=== PATIENT | male | born 1970 | race Caucasian/White ===

== ENCOUNTER 2016-07-31 11:24 | Inpatient (IN) | payer MEDICAID ==
[~2016-07-31] VITALS: Ht 175.3 cm; Wt 88.4 kg
[2016-07-31] VITALS (7 sets, daily range): BP systolic 102–139; BP diastolic 52–71; PULSE 64–72; RESP 16–20; TEMP 98.3; O2SAT 93–99
[~2016-07-31 11:24] MED LIST: BENZ1TAB PO; GABA100C4 PO; LURA1TAB2 PO; XANA2TAB2 PO
[2016-07-31] MEDS ORDERED: SODIUM CHLOR 0.9% 1000 ML INJ 1,000 ML IV SCH (11:45)
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
[2016-07-31 12:15] LABS: AUTOMATED NEUTROPHIL # 7.1 TH/MM3 (1.8-7.7); BASOPHIL % 0.2 % (0.0-2.0); EOSINOPHIL # 0.1 TH/MM3 (0-0.4); EOSINOPHIL % 0.6 % (0.0-4.0); HEMO FLAGS DIFF FINAL; LYMPHOCYTE # 2.5 TH/MM3 (1.0-4.8); MEAN CELL VOLUME 90.5 FL (80.0-100.0); MEAN CORPUSCULAR HEMOGLOBIN 30.9 PG (27.0-34.0); MEAN CORPUSCULAR HGB CONC 34.1 % (32.0-36.0); MONO % 4.7 % (0.0-8.0); NEUT % 69.5 % (16.0-70.0); PLATELET COUNT 205 TH/MM3 (150-450); RED BLOOD COUNT 5.09 MIL/MM3 (4.50-5.90); RED CELL DISTRIBUTION WIDTH 13.3 % (11.6-17.2); WHITE BLOOD COUNT 10.2 TH/MM3 (4.0-11.0)
[2016-07-31 12:18] LABS: BLOOD, URINE NEG (NEG); COMMENT (UR) CULT NOT INDICATED; GLUCOSE,URINE NEG (NEG); KETONE, URINE NEG (NEG); NITRITE,URINE NEG (NEG); URINE COLOR LIGHT-YELLOW (YELLW/STRAW)
[2016-07-31 12:19] LABS: CULTURE IF INDICATED CULT NOT INDICATED
--- NOTE | 2016-07-31 12:21 | RADRPT ---
EXAM DATE/TIME: 07/31/2016 11:42 [facility] COMPARISON: CHEST SINGLE AP, April 27, 2016, 22:10. INDICATIONS : Short of breath, seizure today, pain all over body MEDICAL HISTORY : Hepatitis C. Chronic obstructive pulmonary disease. seizures SURGICAL HISTORY : Appendectomy. ENCOUNTER: Initial ACUITY: 1 day PAIN SCORE: 5/10 LOCATION: Bilateral chest FINDINGS: A single view of the chest demonstrates the lungs to be symmetrically aerated without evidence of mas s, infiltrate or effusion. The cardiomediastinal contours are unremarkable. Osseous structures are intact. CONCLUSION: No acute disease. Ayad Noriega MD on July 31, 2016 at 12:18 Board Certified Radiologist. This report was verified electronically.
[2016-07-31 12:23] LABS: AMPHETAMINE, URINE NEG (NEG); BARBITURATES, URINE NEG (NEG); COCAINE, URINE NEG (NEG)
[2016-07-31 12:41] LABS: APTT (PATIENT) 26.1 SEC (24.3-30.1); PROTHROMBIN TIME - PATIENT 10.6 SEC (9.8-11.6)
[2016-07-31 12:59] LABS: ALT (GPT) 18 U/L (12-78); ANION GAP 6 MEQ/L (5-15); AST (GOT) 32 U/L (15-37); BICARBONATE 23.4 MEQ/L (21.0-32.0); BLOOD UREA NITROGEN 10 MG/DL (7-18); CHLORIDE 111 MEQ/L (98-107); GLOMERULAR FILTRATION RATE 100 ML/MIN (>89); SODIUM (NA) 140 MEQ/L (136-145)
[2016-07-31 13:00] LABS: ALKALINE PHOSPHATASE 58 U/L (45-117); TOTAL BILIRUBIN ADULT 0.4 MG/DL (0.2-1.0)
[2016-07-31] MEDS ORDERED: FOSPHENYTOIN INJ 1,000 MGPE in SODIUM CHLORIDE 0.9% INJ 50 ML IV ONE (13:15)
[2016-07-31] MEDS ORDERED: MAGNESIUM HYDROXIDE SUSP 30 ML CUP PO PRN (13:30)
[2016-07-31] MEDS ORDERED: ACETAMINOPHEN 325 MG TAB PO PRN (13:30)
[2016-07-31] MEDS ORDERED: LORazepam 2 MG/ML VIAL IV PUSH PRN (13:30)
[2016-07-31] MEDS ORDERED: ONDANSETRON HCL 4 MG/2 ML VIAL IVP PRN (13:30)
[2016-07-31] MEDS ORDERED: SODIUM CHLORIDE 0.9% FLUSH 5 ML FLUSH FLUSH PRN (13:30)
[2016-07-31] MEDS ORDERED: BISACODYL 10 MG SUPP PR PRN (13:30)
[2016-07-31] MEDS ORDERED: NALOXONE HCL 0.4 MG/ML AMP IV PRN (13:30)
[2016-07-31] MEDS ORDERED: LORazepam 2 MG/ML VIAL IV PUSH ONE (14:00)
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
[2016-07-31] MEDS: ENOXAPARIN SODIUM 40 MG/0.4 ML SYRINGE SQ SCH (14:54)
[2016-07-31] MEDS: SODIUM CHLOR 0.9% 1000 ML INJ 1,000 ML IV SCH (15:03)
--- NOTE | 2016-07-31 15:20 | MG ---
cc: ORAL SUBRAMANIAN M.D. Lab No:[id number] Date: 07/31/2016 Age: Sex: M Race: TECHNIQUE 17 channel EEG. DESCRIPTION The background rhythm reveals a symmetrical alpha rhythm frequency 8-10 Hz amplitude is about 20 microvolts. There is some eye movement artifact and muscle artifact present. There are no lateralizing features seen. There are no epileptiform discharges. Hyperventilation was done with no change in the background rhythm. Photic stimulation was done and a stepwise fashion with a normal driving response. INTERPRETATION Normal EEG. MD LAWRENCE Omer/theodora /2:49 PM /3:18 PM
[2016-07-31] MEDS: LORazepam 1 MG TAB PO PRN (19:40)
--- NOTE | 2016-07-31 19:46 | RADRPT ---
EXAM DATE/TIME: 07/31/2016 19:05 [facility] COMPARISON: No previous studies available for comparison. INDICATIONS : Seizures. MEDICAL HISTORY : Hypertension. HIV. Hepatitis C. SURGICAL HISTORY : Appendectomy. Achilles tendon repair. ENCOUNTER: Subsequent ACUITY: 1 day PAIN SCORE: 0/10 LOCATION: head. TECHNIQUE: Multiplanar, multisequence MRI of the brain was performed without contrast. FINDINGS: CEREBRUM: The ventricles are normal for age. No evidence of midline shift, mass lesion, hemorrhage or acute in farction. No extraaxial fluid collections are seen. The pituitary gland and suprasellar cistern are normal in configuration. WHITE MATTER: No significant signal abnormalities are seen in the white matter. POSTERIOR FOSSA: The cerebellum and brainstem are intact. The 4th ventricle is midline. The cerebellopontine angle is unremarkable. The cerebellar tonsils are normal in position. DIFFUSION IMAGING: No focal areas of restricted diffusion are seen. No evidence of acute infarction. EXTRACRANIAL: The visualized portions of the orbits and paranasal sinuses are unremarkable. CONCLUSION: No acute disease. Clarence Juarez MD on July 31, 2016 at 19:44 Board Certified Radiologist. This report was verified electronically.
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
[2016-07-31] MEDS ORDERED: PHENYTOIN SODIUM 100 MG CAP PO ONE (21:30)
[2016-07-31] MEDS: levETIRAcetam 500 MG TAB PO SCH (21:31)
[2016-07-31] MEDS: SODIUM CHLORIDE 0.9% FLUSH 5 ML FLUSH FLUSH SCH (22:42)
[2016-08-01] VITALS: BP 108/45; PULSE 67; RESP 20; TEMP 98.4; O2SAT 98
[2016-08-01] MEDS: LORazepam 1 MG TAB PO PRN ×2 (02:56→11:23)
[2016-08-01 04:57] VITALS: BP 93/53; PULSE 66; RESP 20; TEMP 97.4; O2SAT 96
[2016-08-01] MEDS: PHENYTOIN SODIUM 100 MG CAP PO SCH ×2 (06:10→14:00)
[2016-08-01] MEDS: SODIUM CHLOR 0.9% 1000 ML INJ 1,000 ML IV SCH ×2 (06:12→09:21)
[2016-08-01 08:22] LABS: AUTOMATED NEUTROPHIL # 7.6 TH/MM3 (1.8-7.7); BASOPHIL # 0.1 TH/MM3 (0-0.2); BASOPHIL % 0.6 % (0.0-2.0); EOSINOPHIL # 0.1 TH/MM3 (0-0.4); EOSINOPHIL % 1.3 % (0.0-4.0); HEMO FLAGS DIFF FINAL; LYMPH % 22.1 % (9.0-44.0); LYMPHOCYTE # 2.4 TH/MM3 (1.0-4.8); MEAN CORPUSCULAR HEMOGLOBIN 30.2 PG (27.0-34.0); MEAN CORPUSCULAR HGB CONC 33.2 % (32.0-36.0); MONO % 6.9 % (0.0-8.0); NEUT % 69.1 % (16.0-70.0); PLATELET COUNT 195 TH/MM3 (150-450); RED BLOOD COUNT 5.05 MIL/MM3 (4.50-5.90); RED CELL DISTRIBUTION WIDTH 12.9 % (11.6-17.2)
[2016-08-01] MEDS: levETIRAcetam 500 MG TAB PO SCH (08:34)
[2016-08-01] MEDS: SODIUM CHLORIDE 0.9% FLUSH 5 ML FLUSH FLUSH SCH (08:34)
[2016-08-01 09:04] LABS: BICARBONATE 24.4 MEQ/L (21.0-32.0); POTASSIUM 3.9 MEQ/L (3.5-5.1)
[2016-08-01 09:17] VITALS: BP 108/52; PULSE 64; RESP 16; TEMP 97.5; O2SAT 94
[2016-08-01] MEDS ORDERED: INFLUENZA VIRUS VACCINE (QUADRIVALENT) 0.5 ML SYR IM ONE (10:00)
[2016-08-01] MEDS ORDERED: PNEUMOCOCCAL POLYVALENT INJ 25 MCG/0.5 ML SYR IM ONE (10:00)
[2016-08-01 13:21] VITALS: BP 121/60; PULSE 60; RESP 16; TEMP 97.3; O2SAT 97
[2016-08-01] MEDS: ENOXAPARIN SODIUM 40 MG/0.4 ML SYRINGE SQ SCH (14:00)
--- NOTE | 2016-08-01 14:04 | HHI.PR ---
Subjective Remarks Follow-up for seizures. The patient states that he didn't sleep that well last night. However he feels well this time. He would like to go home. He likes the idea of changing from Dilantin because it's hard for him to get levels checked. He is agreeable for Ativan taper at this time to get off of benzos. Objective Vitals Vital Signs Date Time Temp Pulse Resp B/P Pulse Ox O2 Delivery O2 Flow Rate FiO2 08/01/16 13:21 97.3 60 16 121/60 97 08/01/16 09:17 97.5 64 16 108/52 94 08/01/16 04:57 97.4 66 20 93/53 96 08/01/16 00:00 98.4 67 20 108/45 98 07/31/16 21:57 98.3 65 20 106/57 93 07/31/16 19:31 72 20 112/61 97 07/31/16 16:43 Room Air 07/31/16 16:43 64 16 106/58 97 Room Air 07/31/16 15:37 71 16 102/52 97 Room Air 07/31/16 14:03 65 16 125/66 97 Room Air I/O 07/31/16 07/31/16 07/31/16 08/01/16 08/01/16 08/01/16 07:00 15:00 23:00 07:00 15:00 23:00 Output Total 200 ml 800 ml Balance -200 ml -800 ml Output Urine Total 200 ml 800 ml Result Diagram: 08/01/16 0736 08/01/16 0736 Imaging Last Impressions Chest X-Ray 07/31/16 1137 Signed Impressions: Service Date/Time: Sunday, July 31, 2016 11:42 - CONCLUSION: No acute disease. Ayad Noriega MD Brain MRI 07/31/16 0000 Signed Impressions: Service Date/Time: Sunday, July 31, 2016 19:05 - CONCLUSION: No acute disease. Clarence Juarez MD Objective Remarks GENERAL: Well-developed well-nourished. In no acute distress. SKIN: Warm and dry. No lesions noted. HEENT: Normocephalic. Pupils equal and round. Mucous membranes pink and moist. CARDIOVASCULAR: Regular rate and rhythm. No murmur appreciated. RESPIRATORY: No accessory muscle use. Clear to auscultation. Breath sounds equal bilaterally. GASTROINTESTINAL: Abdomen soft, non-tender, nondistended. Bowel sounds x4. MUSCULOSKELETAL: No obvious deformities. No clubbing or cyanosis. No edema. NEUROLOGICAL: Awake and alert. No focal neurological deficits. Moves upper and lower extremities spontaneously. Normal speech. PSYCHIATRIC: Appropriate mood and affect; insight and judgment normal. A/P Assessment and Plan 46-year-old male with past medical history of anxiety and seizure disorder who presented with seizures Seizure disorder: Seizures improved with IV Ativan in the ED. Questionable compliance with Dilantin, level subtherapeutic. Also possible benzo withdrawal could be contributing, see below. Started on Keppra. Neurology consulted, appreciate input, recommended Dilantin but will discuss and consider switching to Keppra due to compliance. Seizure precautions. Anxiety: Was on Xanax, possible withdrawal. Benzodiazepines negative in UDS. Patient would like to taper off, prescription written for Ativan taper. PCP follow-up. Written by Chace Romero, acting as scribe for Dr. Delvalle on 08/01/16 at 14:03. The documentation accurately reflects the work performed [id number] by me on at 14:03. Discharge Planning Follow-up with neurology recommendations regarding antiepileptic therapy as outpatient. Likely discharge later today on AED, Ativan taper, and on seizure precautions. Addendum: Dr. Delvalle spoke with Dr. Haynes, who agreed with changing Dilantin to Keppra at discharge. Discharge home. Chace Romero Aug 01, 2016 14:04 Winnie Delvalle DO Aug 01, 2016 20:50
[2016-08-01] MEDS ORDERED: LEVE500 PO (14:26)
--- NOTE | 2016-08-01 23:07 | EKG ---
Date Performed: 07/31/2016 Time Performed: 14:10:33 PTAGE: 46 years EKG: Sinus rhythm NORMAL ECG PREVIOUS TRACING : 04/28/2016 04.16 DOCTOR: Filemon Bonds Interpretating Date/Time 08/01/2016 23:00:22
== END 2016-08-01 14:42 | disposition home or self-care (01) | DRG 101 ==
LOC: NEPC 11:24 → NEDA 13:26 → NEDH 19:45 → N05B 21:29
PROVIDERS: ADMIT Hospitalist; ATTEND Hospitalist
DX: G40.909 Epilepsy, unspecified, not intractable, without status epilepticus (principal); K51.90 Ulcerative colitis, unspecified, without complications; I10 Essential (primary) hypertension; F13.239 Sedative, hypnotic or anxiolytic dependence with withdrawal, unspecified; I25.2 Old myocardial infarction; F17.210 Nicotine dependence, cigarettes, uncomplicated; F20.9 Schizophrenia, unspecified; F31.9 Bipolar disorder, unspecified; F41.9 Anxiety disorder, unspecified; Z87.442 Personal history of urinary calculi
CPT/HCPCS: 70551; 71010; 80048; 80053; 80164; 80185; 80307; 80320; 81001; 82550; 85025; 85610; 85730; 90686; 90732; 93005; 95819; 96360; J1650; J2060; J7030; Q2009; Q2038

== ENCOUNTER 2016-09-02 08:09 | Emergency (ER) | payer MEDICAID ==
[~2016-09-02] VITALS: Ht 175.3 cm; Wt 84.8 kg
[~2016-09-02 08:09] MED LIST changes: -BENZ1TAB PO; -GABA100C4 PO; +LEVE500 PO; -XANA2TAB2 PO
[2016-09-02 08:24] VITALS: BP 157/86; PULSE 89; RESP 16; TEMP 98.3; O2SAT 98
[2016-09-02] MEDS ORDERED: AMLO10TA2 PO (08:33)
[2016-09-02] MEDS ORDERED: XANA1TAB2 PO (08:33)
[2016-09-02] MEDS ORDERED: ONDANSETRON ODT 4 MG TAB PO ONE (09:45)
[2016-09-02] MEDS ORDERED: KETOROLAC TROMETHAMINE 60 MG/2 ML (IM) VIAL IM ONE (09:45)
[2016-09-02] MEDS ORDERED: ZOVI400T PO (09:49)
[2016-09-02] MEDS ORDERED: NORC5TAB PO (09:49)
--- NOTE | 2016-09-02 09:49 | PD ---
HPI Chief Complaint: Complaint Time Seen by Provider: 09:27 Travel History International Travel<30 days: No Contact w/Intl Traveler<30days: No Traveled to known affect area: No History of Present Illness HPI 46 years old male complains of painful rash on the penis. Patient has history of genital herpes. Patient states that he started having painful rash with blisters and clear fluid oozing from the rash yesterday. Patient denies any chest pain or shortness of breath. Patient denies abdominal pain. Patient denies any dysuria or frequency. Patient denies any fever chills. On a scale of 1-10 the pain is a 10. PFSH Past Medical History Asthma: No Blood Disorders: No Bipolar Disorder: Yes Anxiety: Yes Depression: Yes Heart Rhythm Problems: No Cancer: No Cardiac Catheterization: No Cardiovascular Problems: Yes (htn on meds) High Cholesterol: No Chemotherapy: No Congestive Heart Failure: No COPD: No Cerebrovascular Accident: No Diabetes: No Diminished Hearing: No Endocrine: No Gastrointestinal Disorders: Yes (COLITIS ) Genitourinary: No Headaches: Yes Hepatitis: Yes (C) Hypertension: Yes Immune Disorder: No Kidney Stones: Yes Musculoskeletal: No Neurologic: Yes Psychiatric: Yes Reproductive: No Respiratory: No Integumentary: Yes (hx of herpies) Immunizations Current: Yes Migraines: No Myocardial Infarction: Yes (PT STATES WHEN HE WAS 18 BUT 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 TO VIDEO SPECIALIST AND SENT HOME) Radiation Therapy: No Schizophrenia: Yes Seizures: Yes Tetanus Vaccination: < 5 Years Influenza Vaccination: Yes Past Surgical History Abdominal Surgery: Yes (APPENDECTOMY) AICD: No Appendectomy: Yes (1994) Arteriovenous Shunt: No Cardiac Surgery: No Coronary Artery Bypass Graft: No Ear Surgery: No Endocrine Surgery: No Eye Surgery: No Genitourinary Surgery: No Gynecologic Surgery: No Insulin Pump: No Joint Replacement: No Neurologic Surgery: Yes (HEAD SURGERY / SKULL FRACTURE) Oral Surgery: No Pacemaker: No Thoracic Surgery: No Other Surgery: Yes (ACHILLES TENDON RECONSTRUCTION SX right foot) Family History Family Myocardial Infarction: Yes (FATHER, BROTHER) Social History 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 ) Tobacco Use: Yes (1/2 -1 PPD) Substance Use: No (denies) Allergies-Medications (Allergen,Severity, Reaction): Coded Allergies: Codeine (Verified Allergy, Severe, HIVES, 09/02/16) Reported Meds & Prescriptions Reported Meds & Active Scripts Active Keppra (Levetiracetam) 500 Mg Tab 500 Mg PO Q12HR Reported Xanax (Alprazolam) 1 Mg Tab 1 Mg PO BID PRN Amlodipine (Amlodipine Besylate) 10 Mg Tab 10 Mg PO HS Latuda (Lurasidone) 60 Mg Tab 60 Mg PO HS Review of Systems General / Constitutional: No: Fever Eyes: No: Visual changes HENT: No: Headaches Cardiovascular: No: Chest Pain or Discomfort Respiratory: No: Shortness of Breath Gastrointestinal: No: Abdominal Pain Genitourinary: No: Dysuria Musculoskeletal: No: Pain Skin: No Rash Neurologic: No: Weakness Psychiatric: No: Depression Endocrine: No: Polydipsia Hematologic/Lymphatic: No: Easy Bruising Physical Exam Narrative GENERAL: Well-nourished, well-developed patient. SKIN: Warm and dry. HEAD: Normocephalic. EYES: No scleral icterus. No injection or drainage. NECK: Supple, trachea midline. No JVD or lymphadenopathy. CARDIOVASCULAR: Regular rate and rhythm without murmurs, gallops, or rubs. RESPIRATORY: Breath sounds equal bilaterally. No accessory muscle use. GASTROINTESTINAL: Abdomen soft, non-tender, nondistended. MUSCULOSKELETAL: No cyanosis, or edema. BACK: Nontender without obvious deformity. No CVA tenderness. exam: Patient has blistering rash on the gland penis and distal shaft of the penis. No redness no heat. No penile discharge noted. No lymphadenopathy. Data Data Last Documented VS Vital Signs Date Time Temp Pulse Resp B/P Pulse Ox O2 Delivery O2 Flow Rate FiO2 09/02/16 08:33 86 16 09/02/16 08:24 98.3 157/86 98 Orders Ketorolac Inj (Toradol Inj) (09/02/16 09:45) Ondansetron Odt (Zofran Odt) (09/02/16 09:45) MDM Medical Decision Making Medical Screen Exam Complete: Yes Emergency Medical Condition: Yes Differential Diagnosis Differential diagnosis including genital herpes, syphilis, chancre, chancroid, cellulitis, urethritis. Narrative Course 46 years old male with painful rash on the penis. History of genital herpes. Toradol 60 mg IM. Zofran 4 mg ODT. Diagnosis Primary Impression: Genital herpes Qualified Code: A60.01 - Herpes simplex infection of penis Patient Instructions: General Instructions Additional Instructions: Take medications as directed. Follow-up with personal physician and urologist. Return if worse. Med/Other Pt SpecificInfo: Prescription(s) given Scripts Hydrocodone-Acetaminophen ([place])5-325 mg Tab1 Tab PO Q6H PRN (PAIN) #30 TAB Ref 0 Prov:Vinicio Azul MD 09/02/16 Acyclovir (Zovirax)400 Mg [id number] Mg PO TID #21 TAB Ref 0 Prov:Vinicio Azul MD 09/02/16 Disposition: 01 DISCHARGE HOME Condition: Stable Vinicio Azul MD Sep 02, 2016 09:49
== END 2016-09-02 10:00 | disposition home or self-care (01) ==
LOC: PHED 08:09
DX: A60.01 Herpesviral infection of penis (principal); I10 Essential (primary) hypertension; F17.200 Nicotine dependence, unspecified, uncomplicated; Z87.2 Personal history of diseases of the skin and subcutaneous tissue; Z86.79 Personal history of other diseases of the circulatory system; Z87.19 Personal history of other diseases of the digestive system; Z86.69 Personal history of other diseases of the nervous system and sense organs; Z86.59 Personal history of other mental and behavioral disorders
CPT/HCPCS: 96372; 99282; J1885

== ENCOUNTER 2016-12-11 11:12 | Emergency (ER) | payer MEDICAID ==
[~2016-12-11] VITALS: Ht 175.3 cm; Wt 81.0 kg
[~2016-12-11 11:12] MED LIST changes: +AMLO10TA2 PO; +NORC5TAB PO; +XANA1TAB2 PO; +ZOVI400T PO
[2016-12-11 11:15] VITALS: BP 138/95; PULSE 80; RESP 16; TEMP 98.3; O2SAT 100
[2016-12-11] MEDS ORDERED: oxyCODONE/ACETAMINOPHEN 5 MG/325 MG TAB PO ONE (11:45)
[2016-12-11] MEDS ORDERED: ONDANSETRON HCL 4 MG/2 ML VIAL IV PUSH ONE (11:45)
[2016-12-11] MEDS ORDERED: SODIUM CHLOR 0.9% 1000 ML INJ 1,000 ML IV ONE (11:45)
[2016-12-11 12:10] LABS: AUTOMATED NEUTROPHIL # 5.3 TH/MM3 (1.8-7.7); BASOPHIL # 0.4 TH/MM3 (0-0.2); BASOPHIL % 4.6 % (0.0-2.0); EOSINOPHIL # 0.1 TH/MM3 (0-0.4); EOSINOPHIL % 1.3 % (0.0-4.0); HEMATOCRIT 45.2 % (39.0-51.0); HEMO FLAGS DIFF FINAL; LYMPHOCYTE # 2.2 TH/MM3 (1.0-4.8); MEAN CELL VOLUME 90.8 FL (80.0-100.0); MEAN CORPUSCULAR HEMOGLOBIN 30.4 PG (27.0-34.0); MEAN CORPUSCULAR HGB CONC 33.5 % (32.0-36.0); MONO % 6.5 % (0.0-8.0); NEUT % 61.6 % (16.0-70.0); PLATELET COUNT 186 TH/MM3 (150-450); RED BLOOD COUNT 4.98 MIL/MM3 (4.50-5.90); RED CELL DISTRIBUTION WIDTH 12.5 % (11.6-17.2); WHITE BLOOD COUNT 8.6 TH/MM3 (4.0-11.0)
--- NOTE | 2016-12-11 12:11 | PD ---
HPI Chief Complaint: Pain: Acute or Chronic Time Seen by Provider: 11:35 Travel History International Travel<30 days: No Contact w/Intl Traveler<30days: No Traveled to known affect area: No History of Present Illness HPI Patient is a 46 year old male who comes in complaining of lower abdominal pain as well as Herpes pain. He says he noticed he started having an outbreak yesterday and the pain has been getting worse. He does not have any medication for it at home. He says it started as a blister on his penis and then it burst and had some leakage of fluid. He also reports some lower abdominal pain with nausea, no vomiting, which is not typical of Herpes pain for him. He denies any fever or chills. He reports some dysuria. He is sexually active with is only. PFSH Past Medical History Asthma: No Blood Disorders: No Bipolar Disorder: Yes Anxiety: Yes Depression: Yes Heart Rhythm Problems: No Cancer: No Cardiac Catheterization: No Cardiovascular Problems: Yes (htn on meds) High Cholesterol: No Chemotherapy: No Congestive Heart Failure: No COPD: No Cerebrovascular Accident: No Diabetes: No Diminished Hearing: No Endocrine: No Gastrointestinal Disorders: Yes (COLITIS ) Genitourinary: No Headaches: Yes Hepatitis: Yes (C) Hypertension: Yes Immune Disorder: No Kidney Stones: Yes Musculoskeletal: No Neurologic: Yes Psychiatric: Yes Reproductive: No Respiratory: No Integumentary: Yes (hx of herpies) Immunizations Current: Yes Migraines: No Myocardial Infarction: Yes (PT STATES WHEN HE WAS 18 BUT 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 TO ARMED SECURITY OFFICER AND SENT HOME) Radiation Therapy: No Schizophrenia: Yes Seizures: Yes Tetanus Vaccination: < 5 Years Influenza Vaccination: Yes Past Surgical History Abdominal Surgery: Yes (APPENDECTOMY) AICD: No Appendectomy: Yes (1994) Arteriovenous Shunt: No Cardiac Surgery: No Coronary Artery Bypass Graft: No Ear Surgery: No Endocrine Surgery: No Eye Surgery: No Genitourinary Surgery: No Gynecologic Surgery: No Insulin Pump: No Joint Replacement: No Neurologic Surgery: Yes (HEAD SURGERY / SKULL FRACTURE) Oral Surgery: No Pacemaker: No Thoracic Surgery: No Other Surgery: Yes (ACHILLES TENDON RECONSTRUCTION SX right foot) Family History Family Myocardial Infarction: Yes (FATHER, BROTHER) Social History 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 ) Tobacco Use: Yes (2 -1 PPD) Substance Use: No (denies) Allergies-Medications (Allergen,Severity, Reaction): Coded Allergies: Codeine (Verified Allergy, Severe, HIVES, 12/11/16) Reported Meds & Prescriptions Reported Meds & Active Scripts Active Keppra (Levetiracetam) 500 Mg Tab 500 Mg PO Q12HR Reported Xanax (Alprazolam) 1 Mg Tab 1 Mg PO BID PRN Amlodipine (Amlodipine Besylate) 10 Mg Tab 10 Mg PO HS Latuda (Lurasidone) 60 Mg Tab 60 Mg PO HS Review of Systems Except as stated in HPI: all other systems reviewed are Neg General / Constitutional: No: Fever, Chills HENT: No: Headaches, Lightheadedness Cardiovascular: No: Chest Pain or Discomfort Respiratory: No: Shortness of Breath Gastrointestinal: Positive: Nausea, Abdominal Pain, No: Vomiting Genitourinary: Positive: Dysuria, Discharge Skin: Positive Lesions, No Rash, No Change in Pigmentation Neurologic: No: Weakness, Dizziness Physical Exam Narrative GENERAL: Awake and alert, in no acute distress. SKIN: Focused skin assessment warm/dry. HEAD: Atraumatic. Normocephalic. EYES: Pupils equal and round. No scleral icterus. ENT: Mucous membranes pink and moist. NECK: Trachea midline. No JVD. CARDIOVASCULAR: Regular rate and rhythm. No murmur appreciated. RESPIRATORY: No accessory muscle use. Clear to auscultation. Breath sounds equal bilaterally. GASTROINTESTINAL: Abdomen soft, nondistended. Tender to palpation of LLQ and suprapubic area. No rebound or guarding. : Exam performed in the presence of nurse Kimbrough. There is a small ulceration just below the glans, on the right side. No discharge from the urethra. No testicular lesions or masses. MUSCULOSKELETAL: No obvious deformities. No clubbing. No cyanosis. No edema. NEUROLOGICAL: Awake and alert. No obvious cranial nerve deficits. Motor grossly within normal limits. Normal speech. PSYCHIATRIC: Appropriate mood and affect; insight and judgment normal. Data Data Last Documented VS Vital Signs Date Time Temp Pulse Resp B/P Pulse Ox O2 Delivery O2 Flow Rate FiO2 12/11/16 11:15 98.3 80 16 138/95 100 Orders Complete Blood Count With Diff (12/11/16 11:40) Comprehensive Metabolic Panel (12/11/16 11:40) Urinalysis - C+S If Indicated (12/11/16 11:40) Gc And Chlamydia Pcr (12/11/16 11:40) Iv Access Insert/Monitor (12/11/16 11:40) Sodium Chlor 0.9% 1000 Ml Inj (Ns 1000 M (12/11/16 11:45) Ondansetron Inj (Zofran Inj) (12/11/16 11:45) Oxycodone-Acetamin 5-325 Mg (Percocet (12/11/16 11:45) Ct Abd/Pel W Iv Contrast(Rout) (12/11/16 ) Iohexol 350 Inj (Omnipaque 350 Inj) (12/11/16 13:01) Labs Laboratory Tests Test 12/11/16 12:00 White Blood Count 8.6 TH/MM3 Red Blood Count 4.98 MIL/MM3 Hemoglobin 15.1 GM/DL Hematocrit 45.2 % Mean Corpuscular Volume 90.8 FL Mean Corpuscular Hemoglobin 30.4 PG Mean Corpuscular Hemoglobin 33.5 % Concent Red Cell Distribution Width 12.5 % Platelet Count 186 TH/MM3 Mean Platelet Volume 7.9 FL Neutrophils (%) (Auto) 61.6 % Lymphocytes (%) (Auto) 26.0 % Monocytes (%) (Auto) 6.5 % Eosinophils (%) (Auto) 1.3 % Basophils (%) (Auto) 4.6 % Neutrophils # (Auto) 5.3 TH/MM3 Lymphocytes # (Auto) 2.2 TH/MM3 Monocytes # (Auto) 0.6 TH/MM3 Eosinophils # (Auto) 0.1 TH/MM3 Basophils # (Auto) 0.4 TH/MM3 CBC Comment DIFF FINAL Differential Comment Urine Collection Type CLEAN CATCH Urine Color YELLOW Urine Turbidity CLEAR Urine pH 8.0 Urine Specific Jewell 1.018 Urine Protein NEG mg/dL Urine Glucose (UA) 250 mg/dL Urine Ketones NEG mg/dL Urine Occult Blood NEG Urine Nitrite NEG Urine Bilirubin NEG Urine Leukocyte Esterase NEG Urine WBC 0-2 /hpf Urine Squamous Epithelial 0-5 /hpf Cells Urine Amorphous Sediment FEW Microscopic Urinalysis Comment CULT NOT INDICATED Urine Collection Time 1200 Sodium Level 144 MEQ/L Potassium Level 3.8 MEQ/L Chloride Level 111 MEQ/L Carbon Dioxide Level 31.0 MEQ/L Anion Gap 2 MEQ/L Blood Urea Nitrogen 14 MG/DL Creatinine 0.79 MG/DL Estimat Glomerular Filtration 106 ML/MIN Rate Random Glucose 101 MG/DL Calcium Level 8.5 MG/DL Total Bilirubin 0.4 MG/DL Aspartate Amino Transf 11 U/L (AST/SGOT) Alanine Aminotransferase 34 U/L (ALT/SGPT) Alkaline Phosphatase 61 U/L Total Protein 7.1 GM/DL Albumin 3.6 GM/DL MDM Medical Decision Making Medical Screen Exam Complete: Yes Emergency Medical Condition: Yes Medical Record Reviewed: Yes Differential Diagnosis Diverticulitis vs colitis vs herpes outbreak vs GC/Chlamydia vs UTI Narrative Course Patient is a 46-year-old male who comes in complaining of a herpes outbreak and lower abdominal pain. Exam shows a herpetic lesion the shaft of his penis, some left lower quadrant abdominal pain. IV established, labs sent. Labs show no acute abnormalities. CT abdomen and pelvis performed shows diverticulosis, no signs of diverticulitis. Patient given pain medicine. Will be discharged with pain medicine as well as a prescription for acyclovir. He is advised follow-up with his primary care doctor. Advised to follow-up with gastroenterology as needed. Advised to return to the ED as needed for any worsening symptoms. Diagnosis Primary Impression: Genital herpes Qualified Code: A60.01 - Herpes simplex infection of penis Patient Instructions: General Instructions, Genital Herpes Simplex (ED) Additional Instructions: Follow up with your doctor. Take pain medicine as needed. Return to the ED as needed for any worsening symptoms. Scripts Hydrocodone-Acetaminophen ([place])5-325 mg Tab1 Tab PO Q6H PRN (PAIN) #12 TAB Ref 0 Prov:Sanam Tang MD 12/11/16 Acyclovir 400 Mg [id number] Mg PO TID 7 Days Ref 0 Prov:Sanam Tang MD 12/11/16 Disposition: DISCHARGE HOME Condition: Stable Sanam Tang MD Dec 11, 2016 12:11
[2016-12-11 12:13] LABS: BLOOD, URINE NEG (NEG); GLUCOSE,URINE 250 mg/dL (NEG); KETONE, URINE NEG (NEG); NITRITE,URINE NEG (NEG)
[2016-12-11 12:14] LABS: METHOD OF COLLECTION CLEAN CATCH; URINE COLOR YELLOW (YELLW/STRAW)
[2016-12-11 12:17] LABS: CHLORIDE 111 MEQ/L (98-107); POTASSIUM 3.8 MEQ/L (3.5-5.1); SODIUM (NA) 144 MEQ/L (136-145)
[2016-12-11 12:21] LABS: ANION GAP 2 MEQ/L (5-15); BLOOD UREA NITROGEN 14 MG/DL (7-18)
[2016-12-11 12:24] LABS: ALT (GPT) 34 U/L (12-78); AST (GOT) 11 U/L (15-37); GLOMERULAR FILTRATION RATE 106 ML/MIN (>89)
[2016-12-11 12:26] LABS: TOTAL BILIRUBIN ADULT 0.4 MG/DL (0.2-1.0)
[2016-12-11 12:27] LABS: ALKALINE PHOSPHATASE 61 U/L (45-117)
[2016-12-11 12:28] LABS: COMMENT (UR) CULT NOT INDICATED; COMMENT2 (UR) MUCOUS PRESENT; CULTURE IF INDICATED CULT NOT INDICATED; SQUAMOUS EPITHELIAL CELL URINE 0-5 /hpf (0-5); WBC, URINE 0-2 /hpf (0-5)
[2016-12-11] MEDS ORDERED: IOHEXOL 350 MG/ML 10 ML VIAL (for RAD DIAG) IV ONE (13:01)
--- NOTE | 2016-12-11 13:09 | RADRPT ---
EXAM DATE/TIME: 12/11/2016 12:32 [facility] COMPARISON: CT ABDOMEN & PELVIS W CONTRAST, April 27, 2016, 22:26. INDICATIONS : Lower mid abdominal pain for 1 day. Prior history of colitis. IV CONTRAST: 95 cc Omnipaque 350 (iohexol) IV ORAL CONTRAST: No oral contrast ingested. RADIATION DOSE: 7.85 CTDIvol (mGy) MEDICAL HISTORY : Hypertension. Renal calculi. Colitis. SURGICAL HISTORY : Appendectomy. ENCOUNTER: Initial ACUITY: 1 day PAIN SCALE: 8/10 LOCATION: Bilateral medial lower abdomen TECHNIQUE: Volumetric scanning of the abdomen and pelvis was performed. Using automated exposure control and ad justment of the mA and/or kV according to patient size, radiation dose was kept as low as reasonably achievable to obtain optimal diagnostic quality images. DICOM format image data is available electro nically for review and comparison. FINDINGS: LOWER LUNGS: The visualized lower lungs are clear. LIVER: Homogeneous density without lesion. There is no dilation of the biliary tree. No calcified gallston es. SPLEEN: Normal size without lesion. PANCREAS: Within normal limits. KIDNEYS: Normal in size and shape. There is no stone or hydronephrosis. Stable cyst right lower pole kidney. ADRENAL GLANDS: Within normal limits. VASCULAR: No aneurysm. Atherosclerotic calcifications of the distal aorta and iliac vasculature noted. BOWEL/MESENTERY: The stomach, small bowel, and colon demonstrate no acute abnormality. There is no free intraperitone al air or fluid. Scattered colonic diverticuli. ABDOMINAL WALL: Within normal limits. RETROPERITONEUM: There is no lymphadenopathy. BLADDER: No wall thickening or mass. REPRODUCTIVE: Within normal limits. INGUINAL: There is no lymphadenopathy or hernia. MUSCULOSKELETAL: Within normal limits for patient age. CONCLUSION: 1. Mild diverticulosis. 2. Right renal cyst. 3. Atherosclerosis. Jean Bishop MD on December 11, 2016 at 13:05 Board Certified Radiologist. This report was verified electronically.
[2016-12-11] MEDS ORDERED: NORC5TAB PO (13:32)
[2016-12-11] MEDS ORDERED: ACYC400T PO (13:32)
[2016-12-11 19:17] LABS: CHLAMYDIA PCR NOT DETECTED (NOT DETECT); NEISSERIA PCR NOT DETECTED (NOT DETECT)
== END 2016-12-11 13:47 | disposition home or self-care (01) ==
LOC: PHED 11:12
DX: A60.01 Herpesviral infection of penis (principal); R11.0 Nausea; R30.0 Dysuria; F31.9 Bipolar disorder, unspecified; I10 Essential (primary) hypertension; Z87.442 Personal history of urinary calculi; I25.2 Old myocardial infarction; F20.9 Schizophrenia, unspecified; F17.210 Nicotine dependence, cigarettes, uncomplicated
CPT/HCPCS: 74177; 80053; 81001; 85025; 87491; 87591; 96361; 96374; 99285; J2405; J7030; Q9967

== ENCOUNTER 2017-01-04 16:44 | Emergency (ER) | payer MEDICAID ==
[~2017-01-04] VITALS: Ht 175.3 cm; Wt 79.0 kg
[~2017-01-04 16:44] MED LIST changes: +ACYC400T PO; -ZOVI400T PO
[2017-01-04 17:40] VITALS: BP 115/74; PULSE 60; RESP 21; TEMP 98.9; O2SAT 94
--- NOTE | 2017-01-04 17:40 | PD ---
Physical Exam Date Seen by Provider: Jan 04, 2017 Time Seen by Provider: 17:40 Narrative I was asked by Dr. Kilpatrick to repair a laceration to patient's forehead. Please refer to her note for full H & P Data Data Last Documented VS Vital Signs Date Time Temp Pulse Resp B/P Pulse Ox O2 Delivery O2 Flow Rate FiO2 01/04/17 17:40 98.9 60 21 115/[address] Brain W/O Iv Contrast(Rout) (01/04/17 ) Ct Cerv Spine W/O Contrast (01/04/17 ) Pelvis, Ap Only (Routine) (01/04/17 ) Tetanus/Diphtheria Tox Adult (Tetanus/Di (01/04/17 17:45) Lidocaine 1% Inj (50 Ml) (Xylocaine 1% I (01/04/17 17:45) MDM Medical Record Reviewed: Yes Supervised Visit with ROXANN: No Differential Diagnosis forehead laceration (right) Narrative Course 2.8 cm laceration to right forehead 8 sutures placed without incident Advised patient that the sutures will need to be removed in 5 -7 days. I discussed generalized wound care and signs of infection. Procedures Procedure Narrative LACERATION LOCATION: Right side of forehead LENGTH: 2.8 cm NUMBER OF STITCHES/NICOLA: 8 REPAIR: The area of the laceration was prepped with Betadine and sterilely draped. The laceration was infiltrated with 1% lidocaine. The wound was copiously irrigated and explored without evidence of foreign body, tendon injury or neurovascular injury. The wound was closed using 6-0 Prolene. This was a single layer repair. Patient tolerated the procedure well. Condition: Stable Fany Cherry Jan 04, 2017 17:40
[2017-01-04] MEDS: TETANUS/DIPHTHERIA TOXOID ADULT 0.5 ML VIAL IM ONE ×2 (17:45→18:35)
[2017-01-04] MEDS: LIDOCAINE HCL 1% 50 ML VIAL INFIL ONE ×2 (17:45→18:35)
--- NOTE | 2017-01-04 17:51 | PD ---
HPI Chief Complaint: Fall Time Seen by Provider: 17:36 Travel History International Travel<30 days: No Contact w/Intl Traveler<30days: No Traveled to known affect area: No History of Present Illness HPI 46yo M who denies any PMH presents to the ED with c/o pain where his laceration is, neck pain and tail bone pain s/p trip and fall today. Pt states he tripped on a bunched sheet today and hit his right forehead on the dresser. +LOC. Also complains of neck pain and pain in his tail bone. Denies any focal weakness or numbness, chest pain, sob, vomiting, abdominal pain. PFSH Past Medical History Asthma: No Blood Disorders: No Bipolar Disorder: Yes Anxiety: Yes Depression: Yes Heart Rhythm Problems: No Cancer: No Cardiac Catheterization: No Cardiovascular Problems: Yes (htn on meds) High Cholesterol: No Chemotherapy: No Congestive Heart Failure: No COPD: No Cerebrovascular Accident: No Diabetes: No Diminished Hearing: No Endocrine: No Gastrointestinal Disorders: Yes (COLITIS ) Genitourinary: No Headaches: Yes Hepatitis: Yes (C) Hypertension: Yes Immune Disorder: No Kidney Stones: Yes Musculoskeletal: No Neurologic: Yes Psychiatric: Yes Reproductive: No Respiratory: No Integumentary: Yes (hx of herpies) Immunizations Current: Yes Migraines: No Myocardial Infarction: Yes (PT STATES WHEN HE WAS 18 BUT 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) Radiation Therapy: No Schizophrenia: Yes Seizures: Yes Past Surgical History Abdominal Surgery: Yes (APPENDECTOMY) AICD: No Appendectomy: Yes (1994) Arteriovenous Shunt: No Cardiac Surgery: No Coronary Artery Bypass Graft: No Ear Surgery: No Endocrine Surgery: No Eye Surgery: No Genitourinary Surgery: No Gynecologic Surgery: No Insulin Pump: No Joint Replacement: No Neurologic Surgery: Yes (HEAD SURGERY / SKULL FRACTURE) Oral Surgery: No Pacemaker: No Thoracic Surgery: No Other Surgery: Yes (ACHILLES TENDON RECONSTRUCTION SX right foot) Family History Family Myocardial Infarction: Yes (FATHER, BROTHER) Social History 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 ) Tobacco Use: Yes (1/2 -1 PPD) Substance Use: No (denies) Allergies-Medications (Allergen,Severity, Reaction): Coded Allergies: Codeine (Verified Allergy, Severe, HIVES, 12/11/16) Reported Meds & Prescriptions Reported Meds & Active Scripts Active Tylenol (Acetaminophen) 325 Mg Tab 650 Mg PO Q6H PRN [place] (Hydrocodone-Acetaminophen) 5-325 mg Tab 1 Tab PO Q6H PRN Acyclovir 400 Mg Tab 400 Mg PO TID 7 Days Keppra (Levetiracetam) 500 Mg Tab 500 Mg PO Q12HR Reported Xanax (Alprazolam) 1 Mg Tab 1 Mg PO BID PRN Amlodipine (Amlodipine Besylate) 10 Mg Tab 10 Mg PO HS Latuda (Lurasidone) 60 Mg Tab 60 Mg PO HS Review of Systems Except as stated in HPI: all other systems reviewed are Neg Physical Exam Narrative GENERAL: 46yo M in mild distress. SKIN: Focused skin assessment warm/dry. HEAD: +3cm laceration in right forehead. EYES: Pupils equal and round at 4mm bilaterally. EOMI. No scleral icterus. No injection or drainage. ENT: No nasal bleeding or discharge. Mucous membranes pink and moist. NECK: Cervical spine collar in place. CARDIOVASCULAR: Regular rate and rhythm. No murmur appreciated. RESPIRATORY: No accessory muscle use. Clear to auscultation. Breath sounds equal bilaterally. GASTROINTESTINAL: Abdomen soft, non-tender, nondistended. MUSCULOSKELETAL: No obvious deformities. No clubbing. No cyanosis. No edema. NEUROLOGICAL: Awake and alert. No obvious cranial nerve deficits. Motor grossly within normal limits. Normal speech. PSYCHIATRIC: Appropriate mood and affect; insight and judgment normal. Data Data Last Documented VS Vital Signs Date Time Temp Pulse Resp B/P Pulse Ox O2 Delivery O2 Flow Rate FiO2 01/04/17 19:00 55 18 115/76 98 Room Air 01/04/17 17:[address] Brain W/O Iv Contrast(Rout) (01/04/17 ) Ct Cerv Spine W/O Contrast (01/04/17 ) Pelvis, Ap Only (Routine) (01/04/17 ) Tetanus/Diphtheria Tox Adult (Tetanus/Di (01/04/17 17:45) Lidocaine 1% Inj (50 Ml) (Xylocaine 1% I (01/04/17 17:45) Ketorolac Inj (Toradol Inj) (01/04/17 19:00) Diazepam (Valium) (01/04/17 19:45) MDM Medical Decision Making Medical Screen Exam Complete: Yes Emergency Medical Condition: Yes Differential Diagnosis ICH vs. fracture vs. contusion vs. laceration Narrative Course 46yo M here with right forehead laceration s/p mechanical fall today. CT cspine negative. CT brain negative. Xray pelvis negative. Pt given toradol but states still in a lot of pain so will give valium for musculoskeletal pain. Neurologically intact. Pt also given tetanus. Laceration repaired by my PA. Pt reevaluated after valium and is requesting lortab. States he has had lortab before without any reactions. Pt is AAOx 3 and has been observed in the ED with no change in mental status. Return precautions given. Pt instructed to have his sutures remove in 5 days. Diagnosis Primary Impression: Fall Qualified Code: W19.XXXA - Fall, initial encounter Patient Instructions: General Instructions Departure Forms: Tests/Procedures Additional Instructions: Please follow up with your PMD or return to the ED for suture removal in 5 days. Return to the ED if symptoms worsen. Med/Other Pt SpecificInfo: Prescription(s) given Scripts Acetaminophen (Tylenol)325 Mg [id number] Mg PO Q6H PRN (PAIN SCALE 1 TO 4) #20 TAB Ref 0 Prov:Sana Kilpatrick DO 01/04/17 Disposition: 01 DISCHARGE HOME Condition: Stable Sana Kilpatrick DO Jan 04, 2017 17:51
--- NOTE | 2017-01-04 17:58 | RADRPT ---
EXAM DATE/TIME: 01/04/2017 17:48 [facility] COMPARISON: MRI BRAIN W/O CONTRAST, July 31, 2016, 19:05. INDICATIONS : Trauma; fall. RADIATION DOSE: 38.13 CTDIvol (mGy) MEDICAL HISTORY : Hepatitis C. Seizures. prior skull fracture SURGICAL HISTORY : Appendectomy. ENCOUNTER: Initial ACUITY: 1 day PAIN SCALE: 7/10 LOCATION: cranial TECHNIQUE: Multiple contiguous axial images were obtained of the head. Using automated exposure control and adj ustment of the mA and/or kV according to patient size, radiation dose was kept as low as reasonably a chievable to obtain optimal diagnostic quality images. DICOM format image data is available electro nically for review and comparison. FINDINGS: CEREBRUM: The ventricles are normal for age. No evidence of midline shift, mass lesion, hemorrhage or acute in farction. No extra-axial fluid collections are seen. POSTERIOR FOSSA: The cerebellum and brainstem are intact. The 4th ventricle is midline. The cerebellopontine angle i s unremarkable. EXTRACRANIAL: The visualized portion of the orbits is intact. SKULL: The calvaria is intact. No evidence of skull fracture. CONCLUSION: Normal examination. Jean Bishop MD on January 04, 2017 at 17:56 Board Certified Radiologist. This report was verified electronically.
--- NOTE | 2017-01-04 18:19 | RADRPT ---
EXAM DATE/TIME: 01/04/2017 17:48 [facility] COMPARISON: No previous studies available for comparison. INDICATIONS : Trauma; fall. RADIATION DOSE: 23.25 CTDIvol (mGy) MEDICAL HISTORY : Hepatitis C. Seizures. prior skull fracture SURGICAL HISTORY : Appendectomy. ENCOUNTER: Initial ACUITY: 1 day PAIN SCALE: 7/10 LOCATION: neck TECHNIQUE: Volumetric scanning of the cervical spine was performed. Multiplanar reconstructions in the sagittal, coronal and oblique axial planes were performed. Using automated exposure control and adjustment o f the mA and/or kV according to patient size, radiation dose was kept as low as reasonably achievable to obtain optimal diagnostic quality images. DICOM format image data is available electronically f or review and comparison. FINDINGS: VERTEBRAE: Normal vertebral body height. ALIGNMENT: No evidence of subluxation. C2-C3: The bony spinal canal is normal in size. No evidence of disc bulge or herniation. The neural forami na are bilaterally patent. C3-C4: The bony spinal canal is normal in size. No evidence of disc bulge or herniation. The neural forami na are bilaterally patent. C4-C5: The bony spinal canal is normal in size. No evidence of disc bulge or herniation. The neural forami na are bilaterally patent. C5-C6: The bony spinal canal is normal in size. No evidence of disc bulge or herniation. The neural forami na are bilaterally patent. C6-C7: The bony spinal canal is normal in size. No evidence of disc bulge or herniation. The neural forami na are bilaterally patent. C7-T1: The bony spinal canal is normal in size. No evidence of disc bulge or herniation. The neural forami na are bilaterally patent. CONCLUSION: No acute disease. Jean Bishop MD on January 04, 2017 at 18:16 Board Certified Radiologist. This report was verified electronically.
--- NOTE | 2017-01-04 18:25 | RADRPT ---
EXAM DATE/TIME: 01/04/2017 18:04 [facility] COMPARISON: No previous studies available for comparison. INDICATIONS : Trauma, fell on his lower back./coccyx/pelvis, pain MEDICAL HISTORY : Herpes. Hepatitis C. Cardiovascular disease. SURGICAL HISTORY : Appendectomy. ENCOUNTER: Initial ACUITY: 1 day PAIN SCORE: 7/10 LOCATION: Bilateral hips FINDINGS: A single frontal view of the pelvis demonstrates no evidence of fracture. The bony pelvic ring is in tact. Bony mineralization is normal. The soft tissues are intact. CONCLUSION: No acute disease. Jean Bishop MD on January 04, 2017 at 18:23 Board Certified Radiologist. This report was verified electronically.
[2017-01-04 19:00] VITALS: BP 115/76; PULSE 55; RESP 18; O2SAT 98
[2017-01-04] MEDS ORDERED: KETOROLAC TROMETHAMINE 30 MG/ML (IVP) VIAL IV PUSH ONE (19:00)
[2017-01-04] MEDS ORDERED: DIAZEPAM 5 MG TAB PO ONE (19:45)
[2017-01-04] MEDS ORDERED: TYLE325T PO (20:04)
[2017-01-04] MEDS ORDERED: ACETAMINOPHEN/HYDROcodone 325 MG/5 MG TAB PO ONE (20:15)
== END 2017-01-04 20:23 | disposition home or self-care (01) ==
LOC: NEPD 16:44
DX: S01.81XA Laceration without foreign body of other part of head, initial encounter (principal); B19.20 Unspecified viral hepatitis C without hepatic coma; I10 Essential (primary) hypertension; Z87.442 Personal history of urinary calculi; I25.2 Old myocardial infarction; F17.210 Nicotine dependence, cigarettes, uncomplicated; W19.XXXA Unspecified fall, initial encounter
CPT/HCPCS: 12013; 70450; 72125; 72170; 96374; 99285; J1885; 90714

== ENCOUNTER 2017-01-12 16:43 | Emergency (ER) | payer MEDICAID ==
[~2017-01-12] VITALS: Ht 175.3 cm; Wt 80.0 kg
[~2017-01-12 16:43] MED LIST changes: +TYLE325T PO
[2017-01-12 16:46] VITALS: BP 147/69; PULSE 87; RESP 18; TEMP 98.6; O2SAT 98
[2017-01-12] MEDS ORDERED: LAMO25 PO (17:03)
[2017-01-12] MEDS ORDERED: levETIRAcetam 500 MG TAB PO ONE (17:30)
--- NOTE | 2017-01-12 17:30 | PD ---
HPI Chief Complaint: Psychiatric Symptoms Time Seen by Provider: 17:30 Travel History International Travel<30 days: No Contact w/Intl Traveler<30days: No Traveled to known affect area: No History of Present Illness HPI 46-year-old male since emergency department question psychiatric evaluation. Patient has history of schizoaffective disorder, bipolar disorder, depression and anxiety. He reports he has no taken his psychiatric medications in 2 days after being evicted from his apartment. He denies homicidal or suicidal ideation. He states he is hearing voices. He will not elaborate what the voices are telling him to do. He states he feels overwhelmed and anxious and needs psychiatric help. His home medications include Latuda, Keppra, Xanax. His PCP is Dr. Mccullough who prescribes his medications. [facility] Past Medical History Narrative Medical Significant for bipolar disorder, schizoaffective disorder, anxiety, seizures, polysubstance abuse Asthma: No Blood Disorders: No Bipolar Disorder: Yes Anxiety: Yes Depression: Yes Heart Rhythm Problems: No Cancer: No Cardiac Catheterization: No Cardiovascular Problems: Yes (htn on meds) High Cholesterol: No Chemotherapy: No Congestive Heart Failure: No COPD: No Cerebrovascular Accident: No Diabetes: No Diminished Hearing: No Endocrine: No Gastrointestinal Disorders: Yes (COLITIS ) Genitourinary: No Headaches: Yes Hepatitis: Yes (C) Heparin Induced Thrombocytopen: No Hypertension: Yes Immune Disorder: No Kidney Stones: Yes Musculoskeletal: No Neurologic: Yes Psychiatric: Yes Reproductive: No Respiratory: Yes (COPD) Integumentary: Yes (hx of herpies) Immunizations Current: Yes Migraines: No Myocardial Infarction: Yes (PT STATES WHEN HE WAS 18 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) Radiation Therapy: No Schizophrenia: Yes Seizures: Yes Past Surgical History Abdominal Surgery: Yes (APPENDECTOMY) AICD: No Appendectomy: Yes (1994) Arteriovenous Shunt: No Cardiac Surgery: No Coronary Artery Bypass Graft: No Ear Surgery: No Endocrine Surgery: No Eye Surgery: No Genitourinary Surgery: No Gynecologic Surgery: No Insulin Pump: No Joint Replacement: No Neurologic Surgery: Yes (HEAD SURGERY / SKULL FRACTURE) Oral Surgery: No Pacemaker: No Thoracic Surgery: No Other Surgery: Yes (ACHILLES TENDON RECONSTRUCTION SX right foot) Family History Family Myocardial Infarction: Yes (FATHER, BROTHER) Social History 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 ) Tobacco Use: Yes (1/2 -1 PPD) Substance Use: No (denies) Allergies-Medications (Allergen,Severity, Reaction): Coded Allergies: Codeine (Verified Allergy, Severe, HIVES, 12/11/16) Reported Meds & Prescriptions Reported Meds & Active Scripts Active Keppra (Levetiracetam) 500 Mg Tab 500 Mg PO Q12HR Reported Lamictal (Lamotrigine) 25 Mg Tab 25 Mg PO DAILY Xanax (Alprazolam) 1 Mg Tab 1 Mg PO BID PRN Amlodipine (Amlodipine Besylate) 10 Mg Tab 10 Mg PO HS Latuda (Lurasidone) 60 Mg Tab 60 Mg PO HS Review of Systems Except as stated in HPI: all other systems reviewed are Neg General / Constitutional: No: Fever Eyes: No: Visual changes HENT: No: Headaches Cardiovascular: No: Chest Pain or Discomfort Respiratory: No: Shortness of Breath Gastrointestinal: No: Abdominal Pain Genitourinary: No: Dysuria Musculoskeletal: No: Pain Skin: No Rash Neurologic: No: Weakness Psychiatric: Positive: Anxiety, Depression, Other (hearing voices) Physical Exam Narrative GENERAL: Alert, well-appearing male no acute distress. SKIN: Focused skin assessment warm/dry. HEAD: Atraumatic. Normocephalic. EYES: Pupils equal and round. No scleral icterus. No injection or drainage. ENT: No nasal bleeding or discharge. Mucous membranes pink and moist. NECK: Trachea midline. No JVD. CARDIOVASCULAR: Regular rate and rhythm. No murmur appreciated. RESPIRATORY: No accessory muscle use. Clear to auscultation. Breath sounds equal bilaterally. GASTROINTESTINAL: Abdomen soft, non-tender, nondistended. Hepatic and splenic margins not palpable. MUSCULOSKELETAL: No obvious deformities. No clubbing. No cyanosis. No edema. NEUROLOGICAL: Awake and alert. No obvious cranial nerve deficits. Motor grossly within normal limits. Normal speech. PSYCHIATRIC: Appropriate mood and affect; insight and judgment normal. Tearful. Data Data Last Documented VS Vital Signs Date Time Temp Pulse Resp B/P Pulse Ox O2 Delivery O2 Flow Rate FiO2 01/12/17 19:12 88 18 131/70 99 Room Air 01/12/17 16:46 98.6 Orders Complete Blood Count With Diff (01/12/17 17:14) Comprehensive Metabolic Panel (01/12/17 17:14) Psych Screen (01/12/17 17:14) Drug Screen, Random Urine (01/12/17 17:14) Alcohol (Ethanol) (01/12/17 17:14) Levetiracetam (Keppra) (01/12/17 17:30) Lorazepam Inj (Ativan Inj) (01/12/17 19:30) Labs Laboratory Tests Test 01/12/17 01/12/17 17:20 17:55 White Blood Count 8.2 TH/MM3 Red Blood Count 4.62 MIL/MM3 Hemoglobin 14.3 GM/DL Hematocrit 42.6 % Mean Corpuscular Volume 92.2 FL Mean Corpuscular Hemoglobin 31.0 PG Mean Corpuscular Hemoglobin 33.6 % Concent Red Cell Distribution Width 13.2 % Platelet Count 168 TH/MM3 Mean Platelet Volume 7.8 FL Neutrophils (%) (Auto) 70.1 % Lymphocytes (%) (Auto) 22.7 % Monocytes (%) (Auto) 6.3 % Eosinophils (%) (Auto) 0.3 % Basophils (%) (Auto) 0.6 % Neutrophils # (Auto) 5.7 TH/MM3 Lymphocytes # (Auto) 1.9 TH/MM3 Monocytes # (Auto) 0.5 TH/MM3 Eosinophils # (Auto) 0.0 TH/MM3 Basophils # (Auto) 0.1 TH/MM3 CBC Comment DIFF FINAL Differential Comment Sodium Level 142 MEQ/L Potassium Level 3.5 MEQ/L Chloride Level 109 MEQ/L Carbon Dioxide Level 24.7 MEQ/L Anion Gap 8 MEQ/L Blood Urea Nitrogen 13 MG/DL Creatinine 0.95 MG/DL Estimat Glomerular Filtration 85 ML/MIN Rate Random Glucose 108 MG/DL Calcium Level 8.6 MG/DL Total Bilirubin 0.7 MG/DL Aspartate Amino Transf 20 U/L (AST/SGOT) Alanine Aminotransferase 16 U/L (ALT/SGPT) Alkaline Phosphatase 49 U/L Total Protein 7.6 GM/DL Albumin 4.3 GM/DL Ethyl Alcohol Level LESS THAN 3 MG/DL Urine Opiates Screen NEG Urine Barbiturates Screen NEG Urine Amphetamines Screen NEG Urine Benzodiazepines Screen NEG Urine Cocaine Screen NEG Urine Cannabinoids Screen NEG MDM Medical Decision Making Medical Screen Exam Complete: Yes Emergency Medical Condition: Yes Differential Diagnosis Mood disorder, bipolar disorder, medication noncompliance, Anxiety, depression Narrative Course 46-year-old male since emergency department question psychiatric evaluation. Patient has history of schizoaffective disorder, bipolar disorder, depression and anxiety. He reports he has no taken his psychiatric medications in 2 days after being evicted from his apartment. He denies homicidal or suicidal ideation. He states he is hearing voices. He will not elaborate what the voices are telling him to do. He states he feels overwhelmed and anxious and needs psychiatric help. CBC is unremarkable BMP is unremarkable Tox screen negative Patient was given 1 mg of IM Ativan for anxiety. He is medically cleared for psychiatric evaluation. Diagnosis Primary Impression: Anxiety Additional Impression: Auditory hallucinations Khushi Joseph Jan 12, 2017 17:30
[2017-01-12 17:39] LABS: AUTOMATED NEUTROPHIL # 5.7 TH/MM3 (1.8-7.7); BASOPHIL # 0.1 TH/MM3 (0-0.2); BASOPHIL % 0.6 % (0.0-2.0); EOSINOPHIL % 0.3 % (0.0-4.0); HEMATOCRIT 42.6 % (39.0-51.0); HEMO FLAGS DIFF FINAL; LYMPH % 22.7 % (9.0-44.0); LYMPHOCYTE # 1.9 TH/MM3 (1.0-4.8); MEAN CELL VOLUME 92.2 FL (80.0-100.0); MEAN CORPUSCULAR HGB CONC 33.6 % (32.0-36.0); MONO % 6.3 % (0.0-8.0); NEUT % 70.1 % (16.0-70.0); PLATELET COUNT 168 TH/MM3 (150-450); RED BLOOD COUNT 4.62 MIL/MM3 (4.50-5.90); RED CELL DISTRIBUTION WIDTH 13.2 % (11.6-17.2); WHITE BLOOD COUNT 8.2 TH/MM3 (4.0-11.0)
[2017-01-12 17:58] LABS: ALT (GPT) 16 U/L (12-78); ANION GAP 8 MEQ/L (5-15); AST (GOT) 20 U/L (15-37); BICARBONATE 24.7 MEQ/L (21.0-32.0); BLOOD UREA NITROGEN 13 MG/DL (7-18); CHLORIDE 109 MEQ/L (98-107); GLOMERULAR FILTRATION RATE 85 ML/MIN (>89); POTASSIUM 3.5 MEQ/L (3.5-5.1); SODIUM (NA) 142 MEQ/L (136-145)
[2017-01-12 18:00] LABS: ALKALINE PHOSPHATASE 49 U/L (45-117); TOTAL BILIRUBIN ADULT 0.7 MG/DL (0.2-1.0)
[2017-01-12 18:53] LABS: AMPHETAMINE, URINE NEG (NEG); BARBITURATES, URINE NEG (NEG); COCAINE, URINE NEG (NEG)
[2017-01-12 19:12] VITALS: BP 131/70; PULSE 88; RESP 18; O2SAT 99
[2017-01-12] MEDS ORDERED: LORazepam 2 MG/ML VIAL IM ONE (19:30)
[2017-01-12 22:06] VITALS: BP 114/59; PULSE 62; RESP 20; O2SAT 98
[2017-01-13 02:07] VITALS: BP 115/61; PULSE 64; RESP 20
[2017-01-13 06:16] VITALS: BP 100/57; PULSE 52; RESP 16; O2SAT 98
[2017-01-13 10:00] VITALS: BP 119/72; PULSE 67; RESP 18
== END 2017-01-13 10:27 | disposition home or self-care (01) ==
LOC: NEPD 16:43 → NEPJ 01-13 10:27
DX: F41.9 Anxiety disorder, unspecified (principal); R44.0 Auditory hallucinations
CPT/HCPCS: 80053; 80307; 85025; 96372; 99284; J2060

== ENCOUNTER 2017-01-31 08:51 | Emergency (ER) | payer MEDICAID ==
[~2017-01-31] VITALS: Ht 175.3 cm; Wt 80.0 kg
[~2017-01-31 08:51] MED LIST changes: -ACYC400T PO; +LAMO25 PO; -NORC5TAB PO; -TYLE325T PO
[2017-01-31 09:03] VITALS: BP 159/86; PULSE 74; RESP 20; O2SAT 99
[2017-01-31 09:07] VITALS: BP 159/86; PULSE 74; RESP 20; O2SAT 99
--- NOTE | 2017-01-31 09:36 | PD ---
HPI Chief Complaint: OD/ Ingestion Time Seen by Provider: 09:23 Travel History International Travel<30 days: No Contact w/Intl Traveler<30days: No Traveled to known affect area: No History of Present Illness HPI 46 years old male was brought in by EMS after patient was found unresponsive this morning. Patient has history of schizophrenia and bipolar disorder and chronic pain. Patient took 3 Lortab this morning. Patient states that his found him unresponsive and called EMS. Patient was given 0.8 mg IV Narcan at the scene. Patient woke up. Patient states that he has mild aching headache. Patient denies any visual change. Patient denies any neck pain. Patient denies any chest pain or shortness of breath. Patient denies abdominal pain. Patient denies any focal weakness or numbness of extremity. Patient feeling much better now. Patient denies any suicidal or homicidal ideation. Patient denies any other illicit drug abuse. Patient denies alcohol abuse. PFSH Past Medical History Asthma: No Blood Disorders: No Bipolar Disorder: Yes Anxiety: Yes Depression: Yes Heart Rhythm Problems: No Cancer: No Cardiac Catheterization: No Cardiovascular Problems: Yes (HTN, 1987) High Cholesterol: No Chemotherapy: No Congestive Heart Failure: No COPD: No Cerebrovascular Accident: No Diabetes: No Diminished Hearing: No Endocrine: No Gastrointestinal Disorders: Yes (COLITIS ) Genitourinary: No Headaches: Yes Hepatitis: Yes (C) Heparin Induced Thrombocytopen: No Hypertension: Yes Immune Disorder: No Kidney Stones: Yes Musculoskeletal: No Neurologic: Yes Psychiatric: Yes Reproductive: No Respiratory: Yes (COPD, EMYPHYSEMA ) Integumentary: Yes (hx of herpies) Immunizations Current: Yes Migraines: No Myocardial Infarction: Yes (PT STATES WHEN HE WAS 18 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) Radiation Therapy: No Schizophrenia: Yes Seizures: Yes Past Surgical History Abdominal Surgery: Yes (APPENDECTOMY) AICD: No Appendectomy: Yes (1994) Arteriovenous Shunt: No Cardiac Surgery: No Coronary Artery Bypass Graft: No Ear Surgery: No Endocrine Surgery: No Eye Surgery: No Genitourinary Surgery: No Gynecologic Surgery: No Insulin Pump: No Joint Replacement: No Neurologic Surgery: Yes (HEAD SURGERY / SKULL FRACTURE) Oral Surgery: No Pacemaker: No Thoracic Surgery: No Other Surgery: Yes (ACHILLES TENDON RECONSTRUCTION SX right foot) Family History Family Myocardial Infarction: Yes (FATHER, BROTHER) Social History Alcohol Use: No Tobacco Use: Yes (1/2 -1 PPD) Substance Use: No (denies) Allergies-Medications (Allergen,Severity, Reaction): Coded Allergies: codeine (Unverified Allergy, Severe, HIVES, 01/31/17) Reported Meds & Prescriptions Reported Meds & Active Scripts Active Keppra (Levetiracetam) 500 Mg Tab 500 Mg PO Q12HR Reported Lamictal (Lamotrigine) 25 Mg Tab 25 Mg PO DAILY Xanax (Alprazolam) 1 Mg Tab 1 Mg PO BID PRN Amlodipine (Amlodipine Besylate) 10 Mg Tab 10 Mg PO HS Latuda (Lurasidone) 60 Mg Tab 60 Mg PO HS Review of Systems General / Constitutional: No: Fever Eyes: No: Visual changes HENT: No: Headaches Cardiovascular: No: Chest Pain or Discomfort Respiratory: No: Shortness of Breath Gastrointestinal: No: Abdominal Pain Genitourinary: No: Dysuria Musculoskeletal: No: Pain Skin: No Rash Neurologic: No: Weakness Psychiatric: No: Depression Endocrine: No: Polydipsia Hematologic/Lymphatic: No: Easy Bruising Physical Exam Narrative GENERAL: Well-nourished, well-developed patient. SKIN: Focused skin assessment warm/dry. HEAD: Normocephalic. EYES: No scleral icterus. No injection or drainage. NECK: Supple, trachea midline. No JVD or lymphadenopathy. CARDIOVASCULAR: Regular rate and rhythm without murmurs, gallops, or rubs. RESPIRATORY: Breath sounds equal bilaterally. No accessory muscle use. GASTROINTESTINAL: Abdomen soft, non-tender, nondistended. MUSCULOSKELETAL: No cyanosis, or edema. BACK: Nontender without obvious deformity. No CVA tenderness. Neurologic exam: Patient's awake alert oriented 3. No obvious focal neurological deficit. Data Data Last Documented VS Vital Signs Date Time Temp Pulse Resp B/P Pulse Ox O2 Delivery O2 Flow Rate FiO2 01/31/17 09:07 74 20 99 Room Air 01/31/17 09:07 159/86 Orders Ibuprofen (Motrin) (01/31/17 09:45) [facility] Medical Decision Making Medical Screen Exam Complete: Yes Emergency Medical Condition: Yes Differential Diagnosis Differential diagnosis including opiate overdose, electrolyte imbalance, dehydration, TIA, CVA. Narrative Course 46 years old male was brought in for evaluation after opiate ingestion. Patient denies any suicidal or homicidal ideation. Patient was given Narcan with good result. Patient will be discharged home when he is stable and steady on his feet and safely to be discharged. Diagnosis Primary Impression: Opioid overdose Qualified Code: T40.2X1A - Opioid overdose, accidental or unintentional, initial encounter Patient Instructions: General Instructions Additional Instructions: Advised patient to follow with local physician. Return as needed. Med/Other Pt SpecificInfo: No Change to Meds Disposition: 01 DISCHARGE HOME Condition: Stable Vinicio Azul MD Jan 31, 2017 09:36
[2017-01-31] MEDS ORDERED: IBUPROFEN 600 MG TAB PO ONE (09:45)
== END 2017-01-31 10:19 | disposition home or self-care (01) ==
LOC: NEPE 08:51
DX: T40.2X1A Poisoning by other opioids, accidental (unintentional), initial encounter (principal); F20.9 Schizophrenia, unspecified; F31.9 Bipolar disorder, unspecified; R51 Headache; F41.9 Anxiety disorder, unspecified; I10 Essential (primary) hypertension; J44.9 Chronic obstructive pulmonary disease, unspecified; B19.20 Unspecified viral hepatitis C without hepatic coma; I25.2 Old myocardial infarction
CPT/HCPCS: 99283

== ENCOUNTER 2017-02-12 01:19 | Emergency (ER) | payer MEDICAID ==
[~2017-02-12] VITALS: Ht 175.3 cm; Wt 81.8 kg
[2017-02-12 01:34] VITALS: BP 140/72; PULSE 72; RESP 18; TEMP 98.4; O2SAT 96
[2017-02-12] MEDS ORDERED: SODIUM CHLOR 0.9% 1000 ML INJ 1,000 ML IV ONE (02:01)
--- NOTE | 2017-02-12 02:14 | PD ---
HPI Chief Complaint: Flank/Kidney Pain Time Seen by Provider: 02:00 Travel History International Travel<30 days: No Contact w/Intl Traveler<30days: No Traveled to known affect area: No History of Present Illness HPI The patient is a 46-year-old male who called the ambulance because of left flank pain. He states he has kidney stones in the past and this feels similar. The patient does have a history of polysubstance abuse to include cocaine. He currently takes Xanax for anxiety. He denies any fever on the dysuria, frequency or urgency. PFSH Past Medical History Asthma: No Blood Disorders: No Bipolar Disorder: Yes Anxiety: Yes Depression: Yes Heart Rhythm Problems: No Cancer: No Cardiac Catheterization: No Cardiovascular Problems: Yes (HTN, 1987) High Cholesterol: No Chemotherapy: No Congestive Heart Failure: No COPD: No Cerebrovascular Accident: No Diabetes: No Diminished Hearing: No Endocrine: No Gastrointestinal Disorders: Yes (COLITIS ) Genitourinary: No Headaches: Yes Hepatitis: Yes (C) Heparin Induced Thrombocytopen: No Hypertension: Yes Immune Disorder: No Kidney Stones: Yes Musculoskeletal: No Neurologic: Yes Psychiatric: Yes Reproductive: No Respiratory: Yes (COPD, EMYPHYSEMA ) Integumentary: Yes (hx of herpies) Immunizations Current: Yes Migraines: No Myocardial Infarction: Yes (PT STATES WHEN HE WAS 18 BUT 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) Radiation Therapy: No Schizophrenia: Yes Seizures: Yes Past Surgical History Abdominal Surgery: Yes (APPENDECTOMY) AICD: No Appendectomy: Yes (1994) Arteriovenous Shunt: No Cardiac Surgery: No Coronary Artery Bypass Graft: No Ear Surgery: No Endocrine Surgery: No Eye Surgery: No Genitourinary Surgery: No Gynecologic Surgery: No Insulin Pump: No Joint Replacement: No Neurologic Surgery: Yes (HEAD SURGERY / SKULL FRACTURE) Oral Surgery: No Pacemaker: No Thoracic Surgery: No Other Surgery: Yes (ACHILLES TENDON RECONSTRUCTION SX right foot) Family History Family Myocardial Infarction: Yes (FATHER, BROTHER) Social History Alcohol Use: No Tobacco Use: Yes (1/2 -1 PPD) Substance Use: No (denies) Allergies-Medications (Allergen,Severity, Reaction): Coded Allergies: codeine (Verified Allergy, Severe, HIVES, 02/12/17) Reported Meds & Prescriptions Reported Meds & Active Scripts Active Keppra (Levetiracetam) 500 Mg Tab 500 Mg PO Q12HR Reported Lamictal (Lamotrigine) 25 Mg Tab 25 Mg PO DAILY Xanax (Alprazolam) 1 Mg Tab 1 Mg PO BID PRN Amlodipine (Amlodipine Besylate) 10 Mg Tab 10 Mg PO HS Latuda (Lurasidone) 60 Mg Tab 60 Mg PO HS Review of Systems Except as stated in HPI: all other systems reviewed are Neg Physical Exam Narrative GENERAL: The patient is alert, oriented 3 in slight apparent distress with his left flank pain. His vital signs are normal. SKIN: Focused skin assessment warm/dry. HEAD: Atraumatic. Normocephalic. EYES: Pupils equal and round. No scleral icterus. No injection or drainage. ENT: No nasal bleeding or discharge. Mucous membranes pink and moist. NECK: Trachea midline. No JVD. CARDIOVASCULAR: Regular rate and rhythm. No murmur appreciated. RESPIRATORY: No accessory muscle use. Clear to auscultation. Breath sounds equal bilaterally. GASTROINTESTINAL: Abdomen soft, with slight discomfort to direct palpation over the left flank, nondistended. Hepatic and splenic margins not palpable. No guarding or rebound is present. MUSCULOSKELETAL: No obvious deformities. No clubbing. No cyanosis. No edema. NEUROLOGICAL: Awake and alert. No obvious cranial nerve deficits. Motor grossly within normal limits. Normal speech. PSYCHIATRIC: Appropriate mood and affect; insight and judgment normal.The patient is alert, oriented 3 and slight apparent distress with his left flank pain. His vital signs are normal. Data Data Last Documented VS Vital Signs Date Time Temp Pulse Resp B/P (MAP) Pulse Ox O2 Delivery O2 Flow Rate FiO2 02/12/17 01:48 18 02/12/17 01:34 98.4 72 140/72 (94) 96 Orders Orders Complete Blood Count With Diff (02/12/17 02:01) Basic Metabolic Panel (Bmp) (02/12/17 02:01) Ua Includes Microscopic (02/12/17 02:01) Ct Abd/Pel W/O Iv Contrast (02/12/17 02:01) Ecg Monitoring (02/12/17 02:01) Iv Access Insert/Monitor (02/12/17 02:01) Ketorolac Inj (Toradol Inj) (02/12/17 02:15) Sodium Chloride 0.9% Flush (Ns Flush) (02/12/17 02:15) Sodium Chlor 0.9% 1000 Ml Inj (Ns 1000 M (02/12/17 02:01) Labs Laboratory Tests Test 02/12/17 01:50 02/12/17 01:55 Urine Color YELLOW Urine Turbidity CLEAR Urine pH 6.0 Urine Specific [place] 1.025 Urine Protein NEG mg/dL Urine Glucose (UA) NEG mg/dL Urine Ketones NEG mg/dL Urine Occult Blood LARGE Urine Nitrite NEG Urine Bilirubin NEG Urine Leukocyte Esterase NEG Urine RBC 4-9 /hpf Urine Squamous Epithelial Cells 0-5 /hpf Urine Mucus RARE /lpf White Blood Count 9.2 TH/MM3 Red Blood Count 4.87 MIL/MM3 Hemoglobin 14.9 GM/DL Hematocrit 44.4 % Mean Corpuscular Volume 91.2 FL Mean Corpuscular Hemoglobin 30.7 PG Mean Corpuscular Hemoglobin Concent 33.7 % Red Cell Distribution Width 12.6 % Platelet Count 189 TH/MM3 Mean Platelet Volume 9.5 FL Neutrophils (%) (Auto) 59.4 % Lymphocytes (%) (Auto) 29.3 % Monocytes (%) (Auto) 7.1 % Eosinophils (%) (Auto) 2.4 % Basophils (%) (Auto) 1.8 % Neutrophils # (Auto) 5.4 TH/MM3 Lymphocytes # (Auto) 2.7 TH/MM3 Monocytes # (Auto) 0.7 TH/MM3 Eosinophils # (Auto) 0.2 TH/MM3 Basophils # (Auto) 0.2 TH/MM3 CBC Comment DIFF FINAL Differential Comment Blood Urea Nitrogen 20 MG/DL Creatinine 1.10 MG/DL Random Glucose 97 MG/DL Calcium Level 8.0 MG/DL Sodium Level 138 MEQ/L Potassium Level 3.7 MEQ/L Chloride Level 103 MEQ/L Carbon Dioxide Level 29.2 MEQ/L Anion Gap 6 MEQ/L Estimat Glomerular Filtration Rate 72 ML/MIN [facility] Medical Decision Making Medical Screen Exam Complete: Yes Emergency Medical Condition: Yes Medical Record Reviewed: Yes Interpretation(s) The CT scan is normal and there is no acute finding identified to explain the patient's pain. Specifically, no urinary stones are present. He does have mild atherosclerotic disease. The urine shows large blood and 49 red cells but is otherwise normal and culture is not indicated. The CBC is normal. The basic metabolic profile shows a GFR of 72, BUN 20, calcium 8.0 but is otherwise normal. Differential Diagnosis Urinary tract infection, urinary stone, drug seeking behavior, musculoskeletal pain Narrative Course The patient likely has musculoskeletal pain. I went in again at 0315 and the patient was sleeping. Plan: Patient be given Motrin and Flexeril. Diagnosis Primary Impression: Musculoskeletal pain Med/Other Pt SpecificInfo: Prescription(s) given Scripts Cyclobenzaprine (Flexeril) 10 Mg Tab 10 MG PO TID for Muscle Spasm, #60 TAB 0 Refills Prov: Ha Palumbo MD 02/12/17 Ibuprofen (Ibuprofen) 800 Mg Tab 800 MG PO TID, #33 TAB 0 Refills Prov: Ha Palumbo MD 02/12/17 Disposition: 01 DISCHARGE HOME Condition: Stable Ha Palumbo MD Feb 12, 2017 02:14
[2017-02-12] MEDS ORDERED: SODIUM CHLORIDE 0.9% FLUSH 10 ML FLUSH IVF PRN (02:15)
[2017-02-12] MEDS ORDERED: KETOROLAC TROMETHAMINE 30 MG/ML (IVP) VIAL IVP ONE (02:15)
[2017-02-12 02:30] LABS: BLOOD, URINE LARGE (NEG); GLUCOSE,URINE NEG (NEG); KETONE, URINE NEG (NEG); NITRITE,URINE NEG (NEG)
[2017-02-12 02:33] LABS: AUTOMATED NEUTROPHIL # 5.4 TH/MM3 (1.8-7.7); BASOPHIL # 0.2 TH/MM3 (0-0.2); BASOPHIL % 1.8 % (0.0-2.0); EOSINOPHIL # 0.2 TH/MM3 (0-0.4); EOSINOPHIL % 2.4 % (0.0-4.0); HEMATOCRIT 44.4 % (39.0-51.0); HEMO FLAGS DIFF FINAL; LYMPH % 29.3 % (9.0-44.0); LYMPHOCYTE # 2.7 TH/MM3 (1.0-4.8); MEAN CELL VOLUME 91.2 FL (80.0-100.0); MEAN CORPUSCULAR HEMOGLOBIN 30.7 PG (27.0-34.0); MEAN CORPUSCULAR HGB CONC 33.7 % (32.0-36.0); MONO % 7.1 % (0.0-8.0); NEUT % 59.4 % (16.0-70.0); PLATELET COUNT 189 TH/MM3 (150-450); RED BLOOD COUNT 4.87 MIL/MM3 (4.50-5.90); RED CELL DISTRIBUTION WIDTH 12.6 % (11.6-17.2); WHITE BLOOD COUNT 9.2 TH/MM3 (4.0-11.0)
[2017-02-12 02:36] LABS: URINE COLOR YELLOW (YELLW/STRAW)
[2017-02-12 02:37] LABS: SQUAMOUS EPITHELIAL CELL URINE 0-5 /hpf (0-5)
[2017-02-12 02:38] LABS: POTASSIUM 3.7 MEQ/L (3.5-5.1)
[2017-02-12 02:39] LABS: MUCUS URINE RARE /lpf (OCC)
[2017-02-12 02:41] LABS: BICARBONATE 29.2 MEQ/L (21.0-32.0)
--- NOTE | 2017-02-12 02:46 | RADRPT ---
EXAM DATE/TIME: 02/12/2017 02:26 [facility] COMPARISON: No previous studies available for comparison. INDICATIONS : Left flank pain. ORAL CONTRAST: No oral contrast ingested. RADIATION DOSE: 11.85 CTDIvol (mGy) MEDICAL HISTORY : Hypertension. Emphysema. Colitis. SURGICAL HISTORY : Appendectomy. Cholecystectomy. ENCOUNTER: Initial ACUITY: 1 day PAIN SCALE: 9/10 LOCATION: Left flank TECHNIQUE: Volumetric scanning of the abdomen and pelvis was performed. Using automated exposure control and ad justment of the mA and/or kV according to patient size, radiation dose was kept as low as reasonably achievable to obtain optimal diagnostic quality images. DICOM format image data is available electro nically for review and comparison. FINDINGS: LOWER LUNGS: The visualized lower lungs are clear. LIVER: Homogeneous density without lesion. There is no dilation of the biliary tree. No calcified gallston es. SPLEEN: Normal size without lesion. PANCREAS: Within normal limits. KIDNEYS: Normal in size and shape. There is no mass, stone, or hydronephrosis. ADRENAL GLANDS: Within normal limits. VASCULAR: There is no aortic aneurysm. There is mild atherosclerotic disease. BOWEL/MESENTERY: The stomach, small bowel, and colon demonstrate no acute abnormality. There is no free intraperitone al air or fluid. ABDOMINAL WALL: Within normal limits. RETROPERITONEUM: There is no lymphadenopathy. BLADDER: No wall thickening or mass. REPRODUCTIVE: Within normal limits. INGUINAL: There is no lymphadenopathy or hernia. MUSCULOSKELETAL: No acute abnormality. CONCLUSION: 1. No acute finding is identified to explain the left flank pain. No renal stones are present. 2. Mild atherosclerotic disease. Clarence Hernandez MD on February 12, 2017 at 2:41 Board Certified Radiologist. This report was verified electronically.
[2017-02-12] MEDS ORDERED: CYCL1TAB29 PO (03:19)
[2017-02-12] MEDS ORDERED: IBUP800T23 PO (03:19)
[2017-02-12 03:23] VITALS: RESP 18
[2017-02-12 03:29] VITALS: BP 110/49
== END 2017-02-12 03:42 | disposition home or self-care (01) ==
LOC: PHED 01:19
DX: M79.1 Myalgia (principal); I10 Essential (primary) hypertension; I25.2 Old myocardial infarction; J44.9 Chronic obstructive pulmonary disease, unspecified; Z90.49 Acquired absence of other specified parts of digestive tract; Z87.442 Personal history of urinary calculi
CPT/HCPCS: 74176; 80048; 81001; 85025; 96361; 96374; 99285; J1885; J7030

== ENCOUNTER 2017-02-22 11:16 | Observation (INO) | payer MEDICAID ==
[2017-02-22] VITALS (9 sets, daily range): BP systolic 126–188; BP diastolic 58–94; PULSE 53–105; RESP 16–24; TEMP 97.8–98.2; O2SAT 91–99
[~2017-02-22] VITALS: Ht 175.3 cm; Wt 79.0 kg
[~2017-02-22 11:16] MED LIST changes: +CYCL1TAB29 PO; +IBUP800T23 PO
--- NOTE | 2017-02-22 11:29 | PD ---
HPI Chief Complaint: Chest Pain Time Seen by Provider: 11:29 Travel History International Travel<30 days: No Contact w/Intl Traveler<30days: No Traveled to known affect area: No History of Present Illness HPI 46-year-old male presents to the emergency Department with sudden onset chest pain with radiation into the left arm. He states it started about an hour before arrival. He states nausea and vomiting associated with this. He is diaphoretic. He states his pain is 8/10. Patient states he had a heart attack at age 18 secondary to cocaine use. Patient currently denies alcohol or illicit drug use. He denies recent illnesses. He is allergic to codeine but has had morphine in the past. PFSH Past Medical History Asthma: No Blood Disorders: No Bipolar Disorder: Yes Anxiety: Yes Depression: Yes Heart Rhythm Problems: No Cancer: No Cardiac Catheterization: No Cardiovascular Problems: Yes (HTN, 1987) High Cholesterol: No Chemotherapy: No Congestive Heart Failure: No COPD: No Cerebrovascular Accident: No Diabetes: No Diminished Hearing: No Endocrine: No Gastrointestinal Disorders: Yes (COLITIS ) Genitourinary: No Headaches: Yes Hepatitis: Yes (C) Heparin Induced Thrombocytopen: No Hypertension: Yes Immune Disorder: No Kidney Stones: Yes Musculoskeletal: No Neurologic: Yes Psychiatric: Yes Reproductive: No Respiratory: Yes (COPD, EMYPHYSEMA ) Integumentary: Yes (hx of herpies) Immunizations Current: Yes Migraines: No Myocardial Infarction: Yes (PT STATES WHEN HE WAS 18 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) Radiation Therapy: No Schizophrenia: Yes Seizures: Yes ?: Not Past Surgical History Abdominal Surgery: Yes (APPENDECTOMY) AICD: No Appendectomy: Yes (1994) Arteriovenous Shunt: No Cardiac Surgery: No Coronary Artery Bypass Graft: No Ear Surgery: No Endocrine Surgery: No Eye Surgery: No Genitourinary Surgery: No Gynecologic Surgery: No Insulin Pump: No Joint Replacement: No Neurologic Surgery: Yes (HEAD SURGERY / SKULL FRACTURE) Oral Surgery: No Pacemaker: No Thoracic Surgery: No Other Surgery: Yes (ACHILLES TENDON RECONSTRUCTION SX right foot) Social History Alcohol Use: No Tobacco Use: Yes (06/18 -1 PPD) Substance Use: No (denies) Allergies-Medications (Allergen,Severity, Reaction): Coded Allergies: codeine (Verified Allergy, Severe, HIVES, 02/22/17) Reported Meds & Prescriptions Reported Meds & Active Scripts Active Flexeril (Cyclobenzaprine HCl) 10 Mg Tab 10 Mg PO TID Ibuprofen 800 Mg Tab 800 Mg PO TID Keppra (Levetiracetam) 500 Mg Tab 500 Mg PO Q12HR Reported Gabapentin 600 Mg Tab 600 Mg PO BID Lamictal (Lamotrigine) 25 Mg Tab 25 Mg PO DAILY Xanax (Alprazolam) 1 Mg Tab 1 Mg PO BID PRN Amlodipine (Amlodipine Besylate) 10 Mg Tab 10 Mg PO HS Latuda (Lurasidone) 60 Mg Tab 60 Mg PO HS Review of Systems ROS Limitations: Clinical Condition Except as stated in HPI: all other systems reviewed are Neg General / Constitutional: No: Fever Eyes: No: Visual changes HENT: No: Headaches Cardiovascular: Positive: Chest Pain or Discomfort, Diaphoresis, No: Palpitations, Irregular Rhythm, Tachycardia, Dyspnea on exertion, Edema Respiratory: Positive: Shortness of Breath, No: Cough, Wheezing, Sneezing Gastrointestinal: Positive: Nausea, Vomiting, No: Diarrhea, Abdominal Pain Genitourinary: No: Dysuria Musculoskeletal: No: Pain Skin: No Rash Neurologic: No: Weakness Psychiatric: No: Depression Endocrine: No: Polydipsia Hematologic/Lymphatic: No: Easy Bruising Physical Exam Narrative Patient is in moderate distress. He is diaphoretic and in obvious pain.GENERAL: SKIN: Warm and diaphoretic. Normal color. Normal turgor. Patient is noted to have some old lesions suggestive of injection sites on the forearms. HEAD: Atraumatic. Normocephalic. EYES: Pupils equal and round. No scleral icterus. No injection or drainage. ENT: No nasal bleeding or discharge. Mucous membranes pink and moist. Pharynx is clear. NECK: Trachea midline. Supple. CARDIOVASCULAR: Regular rate and rhythm. No murmurs gallops or rubs appreciated. RESPIRATORY: No accessory muscle use. Clear to auscultation. Breath sounds equal bilaterally. GASTROINTESTINAL: Abdomen soft, non-tender, nondistended. Hepatic and splenic margins not palpable. MUSCULOSKELETAL: Extremities without clubbing, cyanosis, or edema. No obvious deformities. NEUROLOGICAL: Awake and alert. No obvious cranial nerve deficits. Motor grossly within normal limits. Five out of 5 muscle strength in the arms and legs. Normal speech. PSYCHIATRIC: Appropriate mood and affect; insight and judgment normal. Data Data Last Documented VS Vital Signs Date Time Temp Pulse Resp B/P (MAP) Pulse Ox O2 Delivery O2 Flow Rate FiO2 02/22/17 11:47 21 96 Room Air 02/22/17 11:43 76 02/22/17 11:21 97.8 Orders Orders Electrocardiogram (02/22/17 11:28) Basic Metabolic Panel (Bmp) (02/22/17 11:28) Ckmb (Isoenzyme) Profile (02/22/17 11:28) Complete Blood Count With Diff (02/22/17 11:28) Magnesium (Mg) (02/22/17 11:28) Prothrombin Time / Inr (Pt) (02/22/17 11:28) Act Partial Throm Time (Ptt) (02/22/17:28) Troponin I (02/22/17 11:28) Chest, Single Ap (02/22/17 11:28) Ecg Monitoring (02/22/17 11:28) Bilateral Bp Monitoring (02/22/17 11:28) Iv Access Insert/Monitor (02/22/17:28) Oximetry (02/22/17 11:28) Oxygen Administration (02/22/17 11:28) Aspirin Chew (Aspirin Chew) (02/22/17 11:30) Morphine Inj (Morphine Inj) (02/22/17 11:30) Sodium Chloride 0.9% Flush (Ns Flush) (02/22/17 11:30) Nitroglycerin Sl (Nitrostat Sl) (02/22/17 11:30) Metoprolol Tartrate Inj (Lopressor Inj) (02/22/17 11:30) Sodium Chlorid 0.9% 500 Ml Inj (Ns 500 M (02/22/17 11:30) Lorazepam Inj (Ativan Inj) (02/22/17 11:45) Lorazepam Inj (Ativan Inj) (02/22/17 11:35) Urinalysis - C+S If Indicated (02/22/17 11:35) Drug Screen, Random Urine (02/22/17 11:35) Alcohol (Ethanol) (02/22/17 11:35) Morphine Inj (Morphine Inj) (02/22/17 12:00) CKMB (02/22/17 11:45) CKMB% (02/22/17 11:45) Admit Order (Ed Use Only) (02/22/17 12:39) Labs Laboratory Tests Test 02/22/17 11:40 02/22/17 11:45 Ethyl Alcohol Level LESS THAN 3 MG/DL White Blood Count 9.6 TH/MM3 Red Blood Count 4.68 MIL/MM3 Hemoglobin 14.6 GM/DL Hematocrit 43.4 % Mean Corpuscular Volume 92.8 FL Mean Corpuscular Hemoglobin 31.2 PG Mean Corpuscular Hemoglobin Concent 33.6 % Red Cell Distribution Width 13.6 % Platelet Count 212 TH/MM3 Mean Platelet Volume 8.1 FL Neutrophils (%) (Auto) 70.3 % Lymphocytes (%) (Auto) 23.2 % Monocytes (%) (Auto) 5.6 % Eosinophils (%) (Auto) 0.6 % Basophils (%) (Auto) 0.3 % Neutrophils # (Auto) 6.7 TH/MM3 Lymphocytes # (Auto) 2.2 TH/MM3 Monocytes # (Auto) 0.5 TH/MM3 Eosinophils # (Auto) 0.1 TH/MM3 Basophils # (Auto) 0.0 TH/MM3 CBC Comment DIFF FINAL Differential Comment Prothrombin Time 10.3 SEC Prothromb Time International Ratio 0.9 RATIO Activated Partial Thromboplast Time 25.4 SEC Blood Urea Nitrogen 13 MG/DL Creatinine 1.03 MG/DL Random Glucose 114 MG/DL Calcium Level 8.4 MG/DL Magnesium Level 2.4 MG/DL Sodium Level 143 MEQ/L Potassium Level 3.9 MEQ/L Chloride Level 112 MEQ/L Carbon Dioxide Level 23.2 MEQ/L Anion Gap 8 MEQ/L Estimat Glomerular Filtration Rate 78 ML/MIN Total Creatine Kinase 101 U/L Troponin I LESS THAN 0.02 NG/ML [facility] Medical Decision Making Medical Screen Exam Complete: Yes Emergency Medical Condition: Yes Differential Diagnosis Cardiac syndrome. Withdrawal symptoms. Esophageal spasm. Acute WI. Endocarditis. Narrative Course Patient's vital signs are stable at time of exam. EKG shows a sinus rhythm at [address] changes. This is reviewed with Dr. Vazquez. IV access is obtained and labs are drawn including CBC, CMP, cardiac panel. Urinalysis is ordered as well as urine drug screen. Serum EtOH is ordered as well. Patient is given aspirin 324 mg by mouth as well as 4 mg Zofran IV, 4 mg morphine IV, and 0.4 mg sublingual nitroglycerin per protocol. Patient is given 500 mg normal saline bolus. Patient is given 2 mg Ativan IV. At the first dose of sublingual nitroglycerin, 4 mg morphine, aspirin, and 2 mg Ativan, the patient appears improved with less anxiousness and jitteriness. He states his pain is still 7 out of 10. Patient is given second dose of nitroglycerin sublingual. An repeat EKG is performed. This continues to show normal sinus rhythm now at 69 beats per minute without significant ST-T changes. Patient is given an additional 2 mg morphine IV. CBC is normal. Coagulation studies are normal. CMP is unremarkable with a troponin of less than 0.02. Serum alcohol is less than 0.3. Urine drug screen is still pending. Chest x-ray is negative for acute process. Patient is admitted to the chest pain center for further evaluation and treatment. Diagnosis Primary Impression: Chest pain Qualified Codes: R07.9 - Chest pain, unspecified Admitting Information Admitting Physician Requests: Observation Condition: Stable Otto Cheema Feb 22, 2017 11:29
[2017-02-22] MEDS ORDERED: SODIUM CHLORID 0.9% 500 ML INJ 500 ML IV ONE (11:30)
[2017-02-22] MEDS ORDERED: MORPHINE SULFATE 4 MG/ML INJ IV PUSH ONE ×4 (11:30→16:00)
[2017-02-22] MEDS ORDERED: METOPROLOL TARTRATE 5 MG/5 ML VIAL IVS SCH (11:30)
[2017-02-22] MEDS ORDERED: SODIUM CHLORIDE 0.9% FLUSH 10 ML FLUSH IVF PRN (11:30)
[2017-02-22] MEDS ORDERED: ASPIRIN 81 MG CHEW TAB PO ONE (11:30)
[2017-02-22] MEDS ORDERED: LORazepam 2 MG/ML VIAL ONE (11:35)
[2017-02-22] MEDS: NITROGLYCERIN 0.4 MG SL 25 TABS/BTL SL SCH ×3 (11:41→12:40)
[2017-02-22] MEDS ORDERED: LORazepam 2 MG/ML VIAL IV PUSH ONE ×2 (11:45→13:30)
[2017-02-22] MEDS ORDERED: GABA600T PO (11:49)
[2017-02-22 12:01] LABS: AUTOMATED NEUTROPHIL # 6.7 TH/MM3 (1.8-7.7); BASOPHIL % 0.3 % (0.0-2.0); EOSINOPHIL # 0.1 TH/MM3 (0-0.4); EOSINOPHIL % 0.6 % (0.0-4.0); HEMATOCRIT 43.4 % (39.0-51.0); HEMO FLAGS DIFF FINAL; LYMPH % 23.2 % (9.0-44.0); LYMPHOCYTE # 2.2 TH/MM3 (1.0-4.8); MEAN CELL VOLUME 92.8 FL (80.0-100.0); MEAN CORPUSCULAR HEMOGLOBIN 31.2 PG (27.0-34.0); MEAN CORPUSCULAR HGB CONC 33.6 % (32.0-36.0); MONO % 5.6 % (0.0-8.0); NEUT % 70.3 % (16.0-70.0); PLATELET COUNT 212 TH/MM3 (150-450); RED BLOOD COUNT 4.68 MIL/MM3 (4.50-5.90); RED CELL DISTRIBUTION WIDTH 13.6 % (11.6-17.2); WHITE BLOOD COUNT 9.6 TH/MM3 (4.0-11.0)
[2017-02-22 12:07] LABS: APTT (PATIENT) 25.4 SEC (24.3-30.1); INTERNATIONAL NORMALIZED RATIO 0.9 RATIO; PROTHROMBIN TIME - PATIENT 10.3 SEC (9.8-11.6)
[2017-02-22 12:38] LABS: ANION GAP 8 MEQ/L (5-15); BICARBONATE 23.2 MEQ/L (21.0-32.0); BLOOD UREA NITROGEN 13 MG/DL (7-18); CHLORIDE 112 MEQ/L (98-107); CREATINE KINASE 101 U/L (39-308); GLOMERULAR FILTRATION RATE 78 ML/MIN (>89); MAGNESIUM 2.4 MG/DL (1.5-2.5); POTASSIUM 3.9 MEQ/L (3.5-5.1); SODIUM (NA) 143 MEQ/L (136-145)
--- NOTE | 2017-02-22 13:04 | RADRPT ---
EXAM DATE/TIME: 02/22/2017 12:13 [facility] COMPARISON: CHEST SINGLE AP, July 31, 2016, 11:42. INDICATIONS : Chest pain. MEDICAL HISTORY : Hypertension. Emphysema. Colitis SURGICAL HISTORY : Appendectomy. Cholecystectomy. ENCOUNTER: Initial ACUITY: 1 day PAIN SCORE: 6/10 LOCATION: Bilateral chest FINDINGS: A single view of the chest demonstrates the lungs to be symmetrically aerated without evidence of mas s, infiltrate or effusion. The cardiomediastinal contours are unremarkable. Osseous structures are intact. CONCLUSION: No acute disease. Be Diaz MD FACR on February 22, 2017 at 13:02 Board Certified Radiologist. This report was verified electronically.
[2017-02-22 13:20] LABS: BLOOD, URINE NEG (NEG); COMMENT (UR) CULT NOT INDICATED; CULTURE IF INDICATED CULT NOT INDICATED; GLUCOSE,URINE NEG (NEG); KETONE, URINE NEG (NEG); MUCUS URINE FEW /lpf (OCC); NITRITE,URINE NEG (NEG); PH, URINE 6.5 (5.0-8.5); SQUAMOUS EPITHELIAL CELL URINE <1 /hpf (0-5); URINE COLOR YELLOW (YELLW/STRAW)
[2017-02-22] MEDS ORDERED: ONDANSETRON HCL 4 MG/2 ML VIAL IV PUSH PRN (13:30)
[2017-02-22] MEDS ORDERED: NITROGLYCERIN 0.4 MG SL 25 TABS/BTL SL PRN (13:30)
[2017-02-22] MEDS ORDERED: ACETAMINOPHEN 500 MG CPLT PO PRN (13:30)
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
[2017-02-22 15:30] LABS: CREATINE KINASE 72 U/L (39-308)
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
[2017-02-22] MEDS ORDERED: ALPRAZolam 1 MG TAB PO PRN (16:30)
[2017-02-22] MEDS: MORPHINE SULFATE 4 MG/ML INJ IV PUSH PRN ×2 (17:58→22:29)
[2017-02-22 18:53] LABS: CREATINE KINASE 91 U/L (39-308)
[2017-02-22] MEDS: GABAPENTIN 300 MG CAP PO SCH (20:55)
[2017-02-22] MEDS: levETIRAcetam 500 MG TAB PO SCH (20:55)
[2017-02-22] MEDS ORDERED: PILL SPLITTER OTHER PRN (21:00)
[2017-02-22] MEDS ORDERED: LURASIDONE 40 MG TAB PO SCH (21:00)
[2017-02-22] MEDS: SODIUM CHLORIDE 0.9% FLUSH 10 ML FLUSH IV FLUSH SCH (22:30)
[2017-02-23 00:15] VITALS: BP 105/65; PULSE 65; RESP 18; TEMP 97.6; O2SAT 64
[2017-02-23 00:57] VITALS: PULSE 62
[2017-02-23] MEDS: MORPHINE SULFATE 4 MG/ML INJ IV PUSH PRN (03:12)
[2017-02-23 03:55] VITALS: PULSE 55
[2017-02-23 04:04] VITALS: BP 95/53; PULSE 48; RESP 17; TEMP 98; O2SAT 96
[2017-02-23 07:56] VITALS: BP 103/61; PULSE 53; RESP 18; TEMP 97.9; O2SAT 95
[2017-02-23] MEDS ORDERED: ASPIRIN 325 MG TAB PO SCH (09:00)
[2017-02-23] MEDS ORDERED: lamoTRIgine 25 MG TAB PO SCH (09:00)
[2017-02-23] MEDS ORDERED: REGADENOSON INJ 0.4 MG/5 ML SYR ONE (09:08)
--- NOTE | 2017-02-23 09:35 | EKG ---
Date Performed: 02/22/2017 Time Performed: 18:30:47 PTAGE: 46 years EKG: SINUS BRADYCARDIA BORDERLINE ECG NO SIG CHANGES PREVIOUS TRACING : 02/22/2017 15.46 DOCTOR: Peng Donnelly Interpretating Date/Time 02/23/2017 09:34:43
--- NOTE | 2017-02-23 09:36 | EKG ---
Date Performed: 02/22/2017 Time Performed: 11:52:47 PTAGE: 46 years EKG: Sinus rhythm NORMAL ECG INTERPRETATION BASED ON A DEFAULT AGE OF 40 YEARS NO SIG CHANGE NO PREVIOUS TRACING DOCTOR: Peng Donnelly Interpretating Date/Time 02/23/2017 09:35:15
--- NOTE | 2017-02-23 09:36 | EKG ---
Date Performed: 02/22/2017 Time Performed: 15:46:07 PTAGE: 46 years EKG: SINUS BRADYCARDIA MODERATE INTRAVENTRICULAR CONDUCTION DELAY BORDERLINE ECG NO CHANGE PREVIOUS TRACING : 07/31/2016 14.10 DOCTOR: Peng Donnelly Interpretating Date/Time 02/23/2017 09:34:58
[2017-02-23] MEDS: SODIUM CHLORIDE 0.9% FLUSH 10 ML FLUSH IV FLUSH SCH (10:05)
[2017-02-23] MEDS: levETIRAcetam 500 MG TAB PO SCH (10:06)
[2017-02-23] MEDS: GABAPENTIN 300 MG CAP PO SCH (10:06)
--- NOTE | 2017-02-23 10:23 | RADRPT ---
EXAM DATE/TIME: 02/23/2017 08:29 [facility] COMPARISON: CHEST SINGLE AP, February 22, 2017, 12:13. MYOCARDIAL PERF PHARM SPECT, GATED W/EF, April 28 16, 12:48. INDICATIONS : Chest pain radiating to the left arm with diaphoresis, nausea and vomiting. Angina. DOSE: 26.9 mCi Tc99m Myoview at stress. 8.8 mCi Tc99m Myoview at rest. 0.4 mg Lexiscan STRESS SYMPTOMS: Dyspnea, stomach pain and chest pain. EJECTION FRACTION: 66% MEDICAL HISTORY : Hypertension. Myocardial infarction. SURGICAL HISTORY : Appendectomy. Cholecystectomy. ENCOUNTER: Initial ACUITY: 1 day PAIN SCALE: 8/10 LOCATION: chest TECHNIQUE: The patient underwent pharmacologic stress with infusion of prescribed dose. Continuous ECG tracing was monitored during stress. Gated SPECT imaging was performed after stress and conventional SPECT i maging was performed at rest. The examination was performed on a SPECT/CT scanner, both attenuation and non-corrected datasets were reviewed. FINDINGS: DISTRIBUTION: The maximum perfused segment at stress is in the anterolateral wall. PERFUSION STUDY: The pattern of perfusion at stress is within normal limits. There is no significant fixed or reversib le perfusion defect. GATED STUDY: There is intact wall motion and thickening without hypokinetic or dyskinetic segments. CONCLUSION: 1. Left ventricle perfusion is within normal limits without findings to suggest stress induced ischem ia. 2. Normal left ventricle wall motion and ejection fraction. RISK CATEGORY: Low (<1% Annual Mortality Rate) Clarence Hernandez MD on February 23, 2017 at 10:18 Board Certified Radiologist. This report was verified electronically.
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
--- NOTE | 2017-02-24 09:52 | TR ---
Date Performed: 02/23/2017 Time Performed: 09:13:26 DOCTOR: Peng Donnelly DRUG LIST: CLINICAL HISTORY: REASON FOR TEST: CHEST PAIN REASON FOR ENDING: OBSERVATION: CONCLUSION: Patient exercised using the Stephen protocol. No electrocardiographic changes were see n to suggest ischemia. Hemodynamic response to exercise was normal. No significant arrhythmia was pre sent. COMMENTS: Negative low level stress test with a low probability of severe ischemia as cause of c urrent problem.
== END 2017-02-23 11:58 | disposition home or self-care (01) ==
LOC: NEPC 11:16 → NEDA 12:41 → NEPGCP 14:01
PROVIDERS: ADMIT Internal Medicine Interventional Cardiology; ATTEND Internal Medicine Interventional Cardiology
DX: R07.89 Other chest pain (principal); G40.909 Epilepsy, unspecified, not intractable, without status epilepticus; F20.9 Schizophrenia, unspecified; I10 Essential (primary) hypertension; R94.31 Abnormal electrocardiogram [ECG] [EKG]; F41.9 Anxiety disorder, unspecified; F19.10 Other psychoactive substance abuse, uncomplicated; F17.210 Nicotine dependence, cigarettes, uncomplicated; Z88.5 Allergy status to narcotic agent; Z76.5 Malingerer [conscious simulation]
CPT/HCPCS: 71010; 78452; 80048; 80307; 81001; 82550; 82552; 83735; 84484; 85025; 85610; 85730; 93005; 93017; 96361; 96374; 96375; 96376; 99285; A9502; G0378; J2060; J2270; J2785; J7040

== ENCOUNTER 2017-03-06 16:39 | Emergency (ER) | payer MEDICAID, OTHER ==
[~2017-03-06] VITALS: Ht 175.3 cm; Wt 82.0 kg
[~2017-03-06 16:39] MED LIST changes: -CYCL1TAB29 PO; +GABA600T PO; -IBUP800T23 PO
[2017-03-06 17:03] VITALS: BP 132/78; PULSE 79; RESP 16; TEMP 98.3; O2SAT 99
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
[2017-03-06 17:41] LABS: AUTOMATED NEUTROPHIL # 5.4 TH/MM3 (1.8-7.7); BASOPHIL % 0.4 % (0.0-2.0); EOSINOPHIL # 0.1 TH/MM3 (0-0.4); EOSINOPHIL % 1.4 % (0.0-4.0); HEMATOCRIT 44.6 % (39.0-51.0); HEMO FLAGS DIFF FINAL; LYMPH % 18.1 % (9.0-44.0); LYMPHOCYTE # 1.4 TH/MM3 (1.0-4.8); MEAN CELL VOLUME 92.7 FL (80.0-100.0); MEAN CORPUSCULAR HEMOGLOBIN 30.5 PG (27.0-34.0); MEAN CORPUSCULAR HGB CONC 32.9 % (32.0-36.0); MONO % 9.4 % (0.0-8.0); NEUT % 70.7 % (16.0-70.0); PLATELET COUNT 170 TH/MM3 (150-450); RED BLOOD COUNT 4.82 MIL/MM3 (4.50-5.90); RED CELL DISTRIBUTION WIDTH 13.6 % (11.6-17.2); WHITE BLOOD COUNT 7.6 TH/MM3 (4.0-11.0)
[2017-03-06 17:53] LABS: ANION GAP 8 MEQ/L (5-15); AST (GOT) 16 U/L (15-37); BICARBONATE 24.9 MEQ/L (21.0-32.0); BLOOD UREA NITROGEN 13 MG/DL (7-18); CHLORIDE 106 MEQ/L (98-107); GLOMERULAR FILTRATION RATE 92 ML/MIN (>89); POTASSIUM 3.5 MEQ/L (3.5-5.1); SODIUM (NA) 139 MEQ/L (136-145)
[2017-03-06 17:54] LABS: ALT (GPT) 17 U/L (12-78)
[2017-03-06 17:57] LABS: ACETAMINOPHEN LESS THAN 2.0 MCG/ML (10.0-30.0); ALCOHOL LESS THAN 3 MG/DL (0-5); ALKALINE PHOSPHATASE 48 U/L (45-117); TOTAL BILIRUBIN ADULT 0.7 MG/DL (0.2-1.0)
[2017-03-06 18:04] VITALS: BP 146/83; PULSE 67; RESP 18; O2SAT 97
[2017-03-06] MEDS ORDERED: LURA80 PO (21:00)
[2017-03-06 22:29] VITALS: BP 116/55; PULSE 63; RESP 18; TEMP 98.6; O2SAT 98
[2017-03-07 06:00] VITALS: BP 126/56; PULSE 60; RESP 17; TEMP 99.2; O2SAT 96
[2017-03-07] MEDS ORDERED: LEVE500 PO ×2 (12:53→14:35)
[2017-03-07] MEDS ORDERED: AMLO10TA2 PO ×2 (12:55→14:35)
[2017-03-07] MEDS ORDERED: XANA1TAB2 PO (12:56)
[2017-03-07] MEDS ORDERED: LAMO25 PO ×2 (12:56→14:35)
[2017-03-07] MEDS ORDERED: levETIRAcetam 500 MG TAB PO ONE (13:15)
[2017-03-07] MEDS ORDERED: lamoTRIgine 25 MG TAB PO ONE (13:15)
[2017-03-07 14:07] VITALS: BP 118/57; PULSE 55; RESP 16; O2SAT 100
--- NOTE | 2017-03-07 14:43 | PD ---
Physical Exam Narrative I was asked by psychiatric arnp to write prescriptions for patient's home medications of Keppra, Lamictal, and amlodipine in order for the patient to be transferred to [facility] for further treatment and evaluation. Patient is here under Paez act for suicidal ideations. Patient was previously medically cleared by previous provider. Please see their documentation for full H&P. Data Data Last Documented VS Vital Signs Date Time Temp Pulse Resp B/P (MAP) Pulse Ox O2 Delivery O2 Flow Rate FiO2 03/07/17 14:07 55 16 118/57 (77) 100 Room Air 03/07/17 06:00 99.2 Orders Orders Complete Blood Count With Diff (03/06/17 16:59) Comprehensive Metabolic Panel (03/06/17 16:59) Psych Screen (03/06/17 16:59) Drug Screen, Random Urine (03/06/17 16:59) Alcohol (Ethanol) (03/06/17 16:59) Salicylates (Aspirin) (03/06/17 16:59) Tylenol (Acetaminophen) (03/06/17 16:59) Diet Regular Basic (03/07/17 Breakfast) Diet Regular Basic (03/07/17 Lunch) Levetiracetam (Keppra) (03/07/17 13:15) Lamotrigine (Lamictal) (03/07/17 13:15) Labs Laboratory Tests Test 03/06/17 16:47 03/06/17 17:10 Salicylates Level 2.8 MG/DL White Blood Count 7.6 TH/MM3 Red Blood Count 4.82 MIL/MM3 Hemoglobin 14.7 GM/DL Hematocrit 44.6 % Mean Corpuscular Volume 92.7 FL Mean Corpuscular Hemoglobin 30.5 PG Mean Corpuscular Hemoglobin Concent 32.9 % Red Cell Distribution Width 13.6 % Platelet Count 170 TH/MM3 Mean Platelet Volume 8.0 FL Neutrophils (%) (Auto) 70.7 % Lymphocytes (%) (Auto) 18.1 % Monocytes (%) (Auto) 9.4 % Eosinophils (%) (Auto) 1.4 % Basophils (%) (Auto) 0.4 % Neutrophils # (Auto) 5.4 TH/MM3 Lymphocytes # (Auto) 1.4 TH/MM3 Monocytes # (Auto) 0.7 TH/MM3 Eosinophils # (Auto) 0.1 TH/MM3 Basophils # (Auto) 0.0 TH/MM3 CBC Comment DIFF FINAL Differential Comment Blood Urea Nitrogen 13 MG/DL Creatinine 0.89 MG/DL Random Glucose 92 MG/DL Total Protein 7.5 GM/DL Albumin 4.0 GM/DL Calcium Level 8.7 MG/DL Alkaline Phosphatase 48 U/L Aspartate Amino Transf (AST/SGOT) 16 U/L Alanine Aminotransferase (ALT/SGPT) 17 U/L Total Bilirubin 0.7 MG/DL Sodium Level 139 MEQ/L Potassium Level 3.5 MEQ/L Chloride Level 106 MEQ/L Carbon Dioxide Level 24.9 MEQ/L Anion Gap 8 MEQ/L Estimat Glomerular Filtration Rate 92 ML/MIN Urine Opiates Screen NEG Acetaminophen Level LESS THAN 2.0 MCG/ML Urine Barbiturates Screen NEG Urine Amphetamines Screen NEG Urine Benzodiazepines Screen POS Urine Cocaine Screen POS Urine Cannabinoids Screen NEG Ethyl Alcohol Level LESS THAN 3 MG/DL MDM Supervised Visit with ROXANN: No Narrative Course Prescription for written for a [facility] home medications of Keppra, Lamictal, and amlodipine so the patient could be transferred to [facility] for further treatment and evaluation. Diagnosis Primary Impression: Medical clearance for psychiatric admission Scripts Lamotrigine (Lamictal) 25 Mg Tab 25 MG PO DAILY for Control Seizures, #30 TAB 0 Refills Prov: Cricket Jimenez MD 03/07/17 Amlodipine (Amlodipine) 10 Mg Tab 10 MG PO HS for Blood Pressure Management, #30 TAB 0 Refills Prov: Cricket Jimenez MD 03/07/17 Levetiracetam (Keppra) 500 Mg Tab 500 MG PO BID for Control Seizures, #60 TAB 0 Refills Prov: Cricket Jimenez MD 03/07/17 Condition: Stable Phillip Maddox Mar 07, 2017 14:43
[2017-03-07] MEDS ORDERED: LORazepam 2 MG/ML VIAL IM ONE (15:00)
== END 2017-03-07 16:14 ==
LOC: NEPJ 16:39
DX: R45.851 Suicidal ideations (principal); F32.9 Major depressive disorder, single episode, unspecified; I10 Essential (primary) hypertension; Z72.0 Tobacco use; Z59.0 Homelessness
CPT/HCPCS: 80053; 80307; 85025; 96372; 99284; J2060

== ENCOUNTER 2017-08-04 23:23 | Observation (INO) | payer MEDICAID, OTHER ==
[~2017-08-04] VITALS: Ht 175.3 cm; Wt 70.5 kg
[~2017-08-04 23:23] MED LIST changes: -GABA600T PO; -LURA1TAB2 PO; +LURA80 PO
[2017-08-04 23:26] VITALS: BP 129/77; PULSE 80; RESP 20; TEMP 98.2; O2SAT 99
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
[2017-08-04] MEDS ORDERED: NITROGLYCERIN 2% OINT 1 GM PACKET TOP ONE (23:45)
--- NOTE | 2017-08-04 23:54 | RADRPT ---
EXAM DATE/TIME: 08/04/2017 23:44 [facility] COMPARISON: CHEST SINGLE AP, April 27, 2016, 22:10. CHEST SINGLE AP, July 31, 2016, 11:42. CHEST SINGLE AP, February 22, 2017, 12:13. INDICATIONS : Chest pain. MEDICAL HISTORY : Hypertension. Chronic obstructive pulmonary disease. SURGICAL HISTORY : Appendectomy. Cholecystectomy. ENCOUNTER: Initial ACUITY: 1 day PAIN SCORE: 10/10 LOCATION: Bilateral chest FINDINGS: A single AP semierect view of the chest was obtained and demonstrates an apparent pleural reflection projected over the left lung apex with lucency above this. This measures up to approximately 1 cm in diameter. There is a similar finding projected over the right lung apex measuring up to 1.8 cm with q uestionable lung markings past this point on the right. There are no confluent infiltrates or effusio ns. The heart and mediastinal structures are within normal limits. The bony thorax is intact and ther e are overlying electrocardiogram leads. CONCLUSION: Small questionable bilateral apical pneumothoraces versus artifact. A followup 2 view chest plain mary m study could be performed for further evaluation. Alternatively this could be evaluated with CT. Ayad Noriega MD on August 04, 2017 at 23:47 Board Certified Radiologist. This report was verified electronically.
[2017-08-04 23:58] LABS: AUTOMATED NEUTROPHIL # 5.6 TH/MM3 (1.8-7.7); BASOPHIL % 0.5 % (0.0-2.0); EOSINOPHIL # 0.4 TH/MM3 (0-0.4); EOSINOPHIL % 3.8 % (0.0-4.0); HEMATOCRIT 41.9 % (39.0-51.0); HEMOGLOBIN 14.2 GM/DL (13.0-17.0); LYMPH % 28.8 % (9.0-44.0); LYMPHOCYTE # 2.7 TH/MM3 (1.0-4.8); MEAN CORPUSCULAR HEMOGLOBIN 30.8 PG (27.0-34.0); MEAN CORPUSCULAR HGB CONC 33.9 % (32.0-36.0); MEAN PLATELET VOLUME 7.9 FL (7.0-11.0); MONO % 6.7 % (0.0-8.0); MONOCYTE # 0.6 TH/MM3 (0-0.9); NEUT % 60.2 % (16.0-70.0); PLATELET COUNT 179 TH/MM3 (150-450); RED CELL DISTRIBUTION WIDTH 13.3 % (11.6-17.2); WHITE BLOOD COUNT 9.4 TH/MM3 (4.0-11.0)
[2017-08-05] VITALS (16 sets, daily range): BP systolic 103–131; BP diastolic 55–75; PULSE 42–70; RESP 16–20; TEMP 97.4–98.4; O2SAT 97–100
[2017-08-05 00:12] LABS: PROTHROMBIN TIME - PATIENT 9.8 SEC (9.8-11.6)
[2017-08-05] MEDS ORDERED: ONDANSETRON HCL 4 MG/2 ML VIAL IV ONE (00:15)
[2017-08-05] MEDS ORDERED: SODIUM CHLORID 0.9% 500 ML INJ 500 ML IV ONE (00:15)
[2017-08-05] MEDS: NITROGLYCERIN 0.4 MG SL 25 TABS/BTL SL SCH ×2 (00:27)
[2017-08-05] MEDS: SODIUM CHLORIDE 0.9% FLUSH 10 ML FLUSH IVF PRN ×2 (00:30)
[2017-08-05 00:31] LABS: ALKALINE PHOSPHATASE 77 U/L (45-117); TOTAL BILIRUBIN ADULT 0.2 MG/DL (0.2-1.0); TROPONIN I LESS THAN 0.02 NG/ML (0.02-0.05)
[2017-08-05 00:36] LABS: ALBUMIN 3.7 GM/DL (3.4-5.0); ALT (GPT) 20 U/L (12-78); AST (GOT) 24 U/L (15-37); BICARBONATE 27.4 MEQ/L (21.0-32.0); BLOOD UREA NITROGEN 18 MG/DL (7-18); CALCIUM 8.2 MG/DL (8.5-10.1); CHLORIDE 107 MEQ/L (98-107); CREATININE 0.92 MG/DL (0.60-1.30); GLOMERULAR FILTRATION RATE 88 ML/MIN (>89); GLUCOSE,RANDOM 87 MG/DL (74-106); MAGNESIUM 2.2 MG/DL (1.5-2.5); SODIUM (NA) 142 MEQ/L (136-145)
[2017-08-05] MEDS ORDERED: IOHEXOL 350 MG/ML 10 ML VIAL (for RAD DIAG) IVCONTRAST ONE (01:19)
--- NOTE | 2017-08-05 01:28 | RADRPT ---
EXAM DATE/TIME: 08/05/2017 01:16 [place] COMPARISON: No previous studies available for comparison. INDICATIONS : Chest pain; rule out pulmonary embolus. Abnormal chest x-ray examination with questionable pneumothor aces. IV CONTRAST: 80 cc Omnipaque 350 (iohexol) IV RADIATION DOSE: 9.61 CTDIvol (mGy) MEDICAL HISTORY : Hypertension. Chronic obstructive pulmonary disease. Hepatitis C.Colitis, Substance abuse (cocaine) SURGICAL HISTORY : Appendectomy. Cholecystectomy. ENCOUNTER: Initial ACUITY: 1 day PAIN SCALE: 7/10 LOCATION: chest TECHNIQUE: Volumetric scanning of the chest was performed using a pulmonary embolism protocol MIP images were re constructed. Using automated exposure control and adjustment of the mA and/or kV according to patien t size, radiation dose was kept as low as reasonably achievable to obtain optimal diagnostic quality images. DICOM format image data is available electronically for review and comparison. Follow-up recommendations for detected pulmonary nodules are based at a minimum on nodule size and pa tient risk factors according to Fleischner Society Guidelines. FINDINGS: PULMONARY ARTERIES: No filling defects are seen in the pulmonary arteries through the segmental level. LUNGS: There is no consolidation or pneumothorax . No concerning pulmonary nodule is visualized. PLEURAE: There is no pleural thickening or pleural effusion. MEDIASTINUM: There is good visualization of the great vessels of the middle mediastinum. No evidence of mediastin al or hilar adenopathy/mass. MUSCULOSKELETAL: Within normal limits for patient age. MISCELLANEOUS: The visualized upper abdominal organs demonstrate no acute abnormality. CONCLUSION: 1. No pneumothorax. 2. No pulmonary embolism. Ayad Noriega MD on August 05, 2017 at 1:24 Board Certified Radiologist. This report was verified electronically.
[2017-08-05] MEDS ORDERED: KETOROLAC TROMETHAMINE 30 MG/ML (IVP) VIAL IV PUSH ONE (01:45)
[2017-08-05] MEDS ORDERED: ACETAMINOPHEN 500 MG CPLT PO PRN (02:00)
[2017-08-05] MEDS ORDERED: SODIUM CHLORIDE 0.9% FLUSH 10 ML FLUSH IV FLUSH PRN (02:00)
[2017-08-05] MEDS ORDERED: ONDANSETRON HCL 4 MG/2 ML VIAL IV PUSH PRN (02:00)
[2017-08-05 03:00] LABS: TROPONIN I LESS THAN 0.02 NG/ML (0.02-0.05)
[2017-08-05] MEDS ORDERED: ALPRAZolam 1 MG TAB PO ONE (03:15)
[2017-08-05 06:00] LABS: TROPONIN I LESS THAN 0.02 NG/ML (0.02-0.05)
--- NOTE | 2017-08-05 07:43 | HHI.HP ---
HPI Primary Care Physician Estiven Mccullough MD Chief Complaint Chest pain History of Present Illness 47 year old male with history of hypertension, hyperlipidemia, bipolar disorder , seizure disorder, and past polysubstance abuse presents to ER for further evaluation of chest pain. Onset last evening. Location left anterior chest. Characterized as heaviness. Radiation to left arm, left arm described as feeling numb. Duration one hour. No known precipitating factors. Reports having a seizure during EVAC ride to ER. Obtaining history of presenting illness extremely difficult due to patient's level of consciousness, waking up for brief moments before falling back to sleep. Vitals stable, no acute distress. Remains alert to self and situation. Patient denies multiple times any use of illegal drugs, stating "I gave that stuff up and gave the nurse a urine sample. " Review of Systems General: No fatigue,weakness, fever, chills, or recent illness. HEENT: No FROST, no vision changes CV: As stated above. No current chest pain. RESP: No SOB GI: No nausea or vomiting : No dysuria, urgency, frequency EXT: No lower leg edema, no paraesthesias MS: No discomfort, recent fall, injury, trauma, or change in ROM NEURO: History of seizure disorder, reports taking Keppra, states last seizure during EVAC on way to hospital. PSYCH: No anxiety, depression, or suicidal ideation Past Family Social History Allergies: Coded Allergies: codeine (Verified Allergy, Severe, HIVES, 08/04/17) Per pt. Past Medical History Hypertension, hyperlipidemia, current smoker, bipolar disorder, seizure disorder , hepatitis C, colitis, kidney stones, PA age 18 Past Surgical History Appendectomy, right Achilles tendon reconstruction, cholecystectomy Reported Medications Reported Meds & Active Scripts Active Lamictal (Lamotrigine) 25 Mg Tab 25 Mg PO DAILY Amlodipine (Amlodipine Besylate) 10 Mg Tab 10 Mg PO HS Keppra (Levetiracetam) 500 Mg Tab 500 Mg PO BID Xanax (Alprazolam) 1 Mg Tab 1 Mg PO BID PRN Latuda (Lurasidone) 80 Mg Tab 60 Mg PO HS Active Ordered Medications Current Medications Medications (Trade) Dose Ordered Sig/Gilberto Route Start Time Stop Time Status Last Admin (NS Flush) 2 ml UNSCH PRN IVF 08/04/17 23:45 08/05/17 00:30 (NS Flush) 2 ml UNSCH PRN IV FLUSH 08/05/17 02:00 08/05/17 02:27 (NS Flush) 2 ml BID IV FLUSH 08/05/17 09:00 (Tylenol) 500 mg Q4H PRN PO 08/05/17 02:00 (Zofran Inj) 4 mg Q6H PRN IV PUSH 08/05/17 02:00 Social History Known hypertension and hyperlipidemia. No known coronary artery disease or diabetes. Current smoker one half pack daily. Adamantly denies any illegal drug use. Past cardiac testing 02/23/2017 Lexiscan-normal examination, EF 66% Physical Exam Vital Signs Vital Signs Date Time Temp Pulse Resp B/P (MAP) Pulse Ox O2 Delivery O2 Flow Rate FiO2 08/05/17 06:58 98.1 42 18 122/75 (91) 98 08/05/17 03:40 08/05/17 02:40 51 08/05/17 02:31 100 Room Air 08/05/17 02:01 100 21 08/05/17 00:32 62 20 118/57 (77) 97 08/05/17 00:05 70 18 126/64 (84) 97 08/04/17 23:26 98.2 80 20 129/77 (94) 99 Physical Exam GENERAL: Lethargic, easily arouses, frequency drifts to sleep during interview, WN, WD, NAD, male HEAD: NC, AT EYES: Sclera clear ENT: Mucous membranes pink and moist CV: RRR, without murmur, rub, gallop, no JVD, S1-S2 no S3-S4. RESP: Clear lungs throughout bilateral, no crackles, wheeze, rhonchi, symmetrical chest rise, nonlabored, able to speak in full sentences ABD: Soft, NT, ND, no masses, positive bowel tones EXT: Pulses +24, no dependent edema MS: Normal tone 4 extremities, nontender, no obvious deformities, full range of motion NEURO: CN II through CN XII grossly intact, motor strength 5/5 PSYCH: A+O 3, lethargic, appropriate speech, questionable insight and judgment SKIN: Normal turgor, normal texture, no lesions, no rashes, brisk cap refill, even hair distribution, multiple tattoos Laboratory Laboratory Tests Test 08/04/17 22:45 08/05/17 02:15 08/05/17 05:10 White Blood Count 9.4 Red Blood Count 4.60 Hemoglobin 14.2 Hematocrit 41.9 Mean Corpuscular Volume 91.0 Mean Corpuscular Hemoglobin 30.8 Mean Corpuscular Hemoglobin Concent 33.9 Red Cell Distribution Width 13.3 Platelet Count 179 Mean Platelet Volume 7.9 Neutrophils (%) (Auto) 60.2 Lymphocytes (%) (Auto) 28.8 Monocytes (%) (Auto) 6.7 Eosinophils (%) (Auto) 3.8 Basophils (%) (Auto) 0.5 Neutrophils # (Auto) 5.6 Lymphocytes # (Auto) 2.7 Monocytes # (Auto) 0.6 Eosinophils # (Auto) 0.4 Basophils # (Auto) 0.0 CBC Comment DIFF FINAL Differential Comment Prothrombin Time 9.8 Prothromb Time International Ratio 1.0 Activated Partial Thromboplast Time 24.5 D-Dimer Quantitative (PE/DVT) 0.28 Blood Urea Nitrogen 18 Creatinine 0.92 Random Glucose 87 Total Protein 7.0 Albumin 3.7 Calcium Level 8.2 Magnesium Level 2.2 Alkaline Phosphatase 77 Aspartate Amino Transf (AST/SGOT) 24 Alanine Aminotransferase (ALT/SGPT) 20 Total Bilirubin 0.2 Sodium Level 142 Potassium Level 4.1 Chloride Level 107 Carbon Dioxide Level 27.4 Anion Gap 8 Estimat Glomerular Filtration Rate 88 Total Creatine Kinase 268 228 197 Creatine Kinase MB 2.8 2.6 2.4 Troponin I LESS THAN 0.02 LESS THAN 0.02 LESS THAN 0.02 B-Type Natriuretic Peptide 8 Lipase 184 Result Diagram: 08/04/17224408/04/172244 Imaging Last [address] Angiography 08/05/17 0023 Signed Impressions: Service Date/Time: Saturday, August 05, 2017 01:16 - CONCLUSION: 1. No pneumothorax. 2. No pulmonary embolism. Ayad Noriega MD Chest X-Ray 08/04/17 1657 Signed Impressions: Service Date/Time: Friday, August 04, 2017 23:44 - CONCLUSION: Small questionable bilateral apical pneumothoraces versus artifact. A followup 2 view chest plain film study could be performed for further evaluation. Alternatively this could be evaluated with CT. Ayad Noriega MD Course EKG NSR, no st t segment changes Caprini VTE Risk Assessment Caprini VTE Risk Assessment: No/Low Risk (score <= 1) Caprini Risk Assessment Model Point Value = 1 Point Value = 2 Point Value = 3 Point Value = 5 Age 41-60 Minor surgery BMI > 25 kg/m2 Swollen legs Varicose veins or History of unexplained or recurrent spontaneous Oral contraceptives or hormone replacement Sepsis (< 1 month) Serious lung disease, including pneumonia (< 1 month) Abnormal pulmonary function Acute myocardial infarction Congestive heart failure (< 1 month) History of inflammatory bowel disease Medical patient at bed rest Age 61-74 Arthroscopic surgery Major open surgery (> 45 min) Laparoscopic surgery (> 45 min) Malignancy Confined to bed (> 72 hours) Immobilizing plaster cast Central venous access Age >= 75 History of VTE Family history of VTE Factor V Leiden Prothrombin [id number] Lupus anticoagulant Anticardiolipin antibodies Elevated serum homocysteine Heparin-induced thrombocytopenia Other congenital or acquired thrombophilia Stroke (< 1 month) Elective arthroplasty Hip, pelvis, or leg fracture Acute spinal cord injury (< 1 month) Prophylaxis Regimen Total Risk Factor Score Risk Level Prophylaxis Regimen 0-1 Low Early ambulation 2 Moderate Order ONE of the following: *Sequential Compression Device (SCD) *Heparin 5000 units SQ BID 3-4 Higher Order ONE of the following medications: *Heparin 5000 units SQ TID *Enoxaparin/Lovenox 40 mg SQ daily (WT < 150 kg, CrCl > 30 mL/min) *Enoxaparin/Lovenox 30 mg SQ daily (WT < 150 kg, CrCl > 10-29 mL/min) *Enoxaparin/Lovenox 30 mg SQ BID (WT < 150 kg, CrCl > 30 mL/min) AND/OR *Sequential Compression Device (SCD) 5 or more Highest Order ONE of the following medications: *Heparin 5000 units SQ TID (Preferred with Epidurals) *Enoxaparin/Lovenox 40 mg SQ daily (WT < 150 kg, CrCl > 30 mL/min) *Enoxaparin/Lovenox 30 mg SQ daily (WT < 150 kg, CrCl > 10-29 mL/min) *Enoxaparin/Lovenox 30 mg SQ BID (WT < 150 kg, CrCl > 30 mL/min) AND *Sequential Compression Device (SCD) Assessment and Plan Assessment and Plan #1 Atypical chest pain-admitted to chest pain center. Ruled out with 3 sets of EKG and cardiac enzymes. Seen and evaluated by Dr. Arthur Coats. Obtain urine toxic screen this morning. Depending on toxic report and lethargy, considering consulting hospitalist. Discussed with RN and patient. No further cardiac testing required, recent normal chemical stress test February 2017. 1110 Toxic screen positive for cocaine and benzodiazepines, (received xanax in ER). Patient remains lethargic, falling to sleep mid-sentence, discussed with Dr. Coats, consult hospitalist for further evaluation. Jacqui Mitchell Aug 05, 2017 07:43
[2017-08-05] MEDS: SODIUM CHLORIDE 0.9% FLUSH 10 ML FLUSH IV FLUSH SCH ×2 (09:02→22:16)
--- NOTE | 2017-08-05 15:46 | EKG ---
Date Performed: 08/05/2017 Time Performed: 06:00:46 PTAGE: 47 years EKG: SINUS BRADYCARDIA LOW QRS VOLTAGE IN EXTREMITY LEADS ST ELEVATION, PROBABLY EARLY REPOLARIZ ATION BORDERLINE ECG PREVIOUS TRACING : 02/22/2017 18.30 Since previous tracing, no significant change noted DOCTOR: Arthur Coats Interpretating Date/Time 08/05/2017 15:45:31
--- NOTE | 2017-08-05 15:47 | EKG ---
Date Performed: 08/04/2017 Time Performed: 23:34:48 PTAGE: 47 years EKG: Sinus rhythm NORMAL ECG PREVIOUS TRACING : 02/22/2017 18.30 Since previous tracing, no significant change noted DOCTOR: Arthur Coats Interpretating Date/Time 08/05/2017 15:46:19
--- NOTE | 2017-08-05 15:47 | EKG ---
Date Performed: 08/05/2017 Time Performed: 02:37:00 PTAGE: 47 years EKG: SINUS BRADYCARDIA BORDERLINE ECG PREVIOUS TRACING : 08/04/2017 23.34 Since previous tracing, no significant change noted DOCTOR: Arthur Coats Interpretating Date/Time 08/05/2017 15:45:57
[2017-08-05] MEDS ORDERED: PILL SPLITTER OTHER PRN (16:30)
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
[2017-08-05] MEDS: lamoTRIgine 25 MG TAB PO SCH (16:37)
[2017-08-05] MEDS: ALPRAZolam 1 MG TAB PO PRN (16:37)
[2017-08-05] MEDS ORDERED: levETIRAcetam 500 MG TAB PO SCH (21:00)
[2017-08-05] MEDS: levETIRAcetam 250 MG TAB PO SCH (22:16)
[2017-08-05] MEDS: LURASIDONE 40 MG TAB PO SCH (22:53)
[2017-08-06] VITALS (8 sets, daily range): BP systolic 100–119; BP diastolic 50–69; PULSE 52–67; RESP 18; TEMP 97.8–98.2; O2SAT 95–98
[2017-08-06 02:27] LABS: TROPONIN I LESS THAN 0.02 NG/ML (0.02-0.05)
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
[2017-08-06] MEDS: ALPRAZolam 1 MG TAB PO PRN ×2 (06:23→14:12)
--- NOTE | 2017-08-06 07:35 | EKG ---
Date Performed: 08/05/2017 Time Performed: 23:00:56 PTAGE: 47 years EKG: SINUS BRADYCARDIA MODERATE INTRAVENTRICULAR CONDUCTION DELAY BORDERLINE ECG Since PREVIOUS TRACING , no significant change noted PREVIOUS TRACIN08/05/2017 06.00 DOCTOR: Marga Kee Interpretating Date/Time 08/06/2017 07:32:46
[2017-08-06] MEDS: levETIRAcetam 250 MG TAB PO SCH ×2 (09:55→20:37)
[2017-08-06] MEDS: lamoTRIgine 25 MG TAB PO SCH (09:55)
[2017-08-06] MEDS: SODIUM CHLORIDE 0.9% FLUSH 10 ML FLUSH IV FLUSH SCH ×2 (09:56→21:00)
--- NOTE | 2017-08-06 13:30 | HHI.PR ---
Subjective Remarks Follow-up abdominal pain, seizure disorder. The patient reports significant pain in the midepigastric region. He describes the pain as sharp. States that he forces himself to eat because eating causes pain, nausea, and vomiting. He has lost 40-50 pounds over the past 6 months. Objective Vitals Vital Signs Date Time Temp Pulse Resp B/P (MAP) Pulse Ox O2 Delivery O2 Flow Rate FiO2 08/06/17 11:58 98.2 64 18 101/58 (72) 95 08/06/17 08:37 98.1 63 18 119/69 (86) 96 08/06/17 07:55 55 08/06/17 06:31 98.0 67 18 118/59 (78) 97 08/06/17 06:01 21 08/06/17 04:05 52 08/06/17 00:00 63 08/05/17 21:03 98.4 60 16 131/67 (88) 98 08/05/17 20:50 61 08/05/17 16:30 97.4 61 18 106/63 (77) 98 08/05/17 15:30 68 I/O 08/05/17 08/05/17 08/05/17 08/06/17 08/06/17 08/06/17 07:00 15:00 23:00 07:00 15:00 23:00 Intake Total 500 ml Output Total 1200 ml Balance 500 ml -1200 ml Intake IV Total 500 ml Output Urine Total 1200 ml # Voids 1 # Bowel Movements 0 Result Diagram: 08/04/17 2245 08/04/[address] Angiography 08/05/17 0023 Signed Impressions: Service Date/Time: Saturday, August 05, 2017 01:16 - CONCLUSION: 1. No pneumothorax. 2. No pulmonary embolism. Ayad Noriega MD Chest X-Ray 08/04/17 4896 Signed Impressions: Service Date/Time: Friday, August 04, 2017 23:44 - CONCLUSION: Small questionable bilateral apical pneumothoraces versus artifact. A followup 2 view chest plain film study could be performed for further evaluation. Alternatively this could be evaluated with CT. Ayad Noriega MD Objective Remarks General: No acute distress. Heart: Regular rate and rhythm. No murmur. Lungs: Clear to auscultation bilaterally. No wheezes, rales, or rhonchi. Breathing is nonlabored. Abdomen: Soft, tender to palpation in midepigastric region, nondistended. Extremities: No lower extremity edema. Psych: Alert and oriented. Procedures None Urinary Catheter: No Vascular Central Line Catheter: No A/P Assessment and Plan 1. Seizure disorder with breakthrough seizure: Appreciate neurology recommendations. Continue Keppra, Lamictal. Seizure precautions. Possibly secondary to benzodiazepine withdrawal. 2. Polysubstance abuse: Urine drug screen positive for benzodiazepines, cocaine. Patient states that he no longer uses illicit drugs. Reports last use of IV heroin 15 years ago. 3. Abdominal pain, nausea, vomiting: Patient also has weight loss of 40-50 pounds over the past 6 months. He reports significant midepigastric pain. He also reports that his stool is more pale in color and more foul-smelling recently. Lipase is normal. Consult gastroenterology for further evaluation. 4. Hypertension: Continue Norvasc. 5. History of hepatitis C 6. Depression/anxiety, bipolar disorder: Continue home medications. 7. Tobacco abuse: Nicotine patch as needed. 8. DVT prophylaxis: MUNA [place]. Case Lockhart MD Aug 06, 2017 13:30
[2017-08-06] MEDS ORDERED: MORPHINE SULFATE 2 MG/ML INJ IV PUSH ONE (15:15)
--- NOTE | 2017-08-06 15:46 | PD.CONS ---
HPI History of Present Illness This is a 47 year old M with medical history significant for HTN, hyperlipidemia , bipolar disorder, seizure disorder, and polysubstance abuse. Pt presented to the ER yesterday with complaints of chest pain raidating down his arm. He denies any preceding factors to the chest pain, however, reports recent use of cocaine after being questioned regarding positive drug screen. Our service has been consulted to evaluate pt for unintentional weight loss, abdominal pain, and loose stools. Pt reports a 40-40 pound weight loss over the past six months. Reports epigastric abdominal pain for the past year, intermittent, described as sharp, denies any aggravating or alleviating factors. States pain has been so bad he has been taking Lortab off the street to help. Associated nausea and vomiting. Denies acid reflux, heartburn, dysphagia. Reports loose, pale colored, foul smelling stools for the past year. Approx 1-2 episodes daily. Of note, he also has history of Hepatitis C, has never received treatment, states he got it from his . History of IV heroine use, states quit 15 years ago. Also has tattoos. Has never had EGD or colonoscopy. Denies ETOH. Current half a pack a day to pack a day smoker. Denies NSAID use, because it makes his stomach burn. As noted earlier reports Cocaine use and Lortab, not prescribed. (Brielle Angela) [facility] Past Medical History HTN Hyperlipidemia Seizure disorder Polysubstance abuse (Brielle Angela) Coded Allergies: codeine (Verified Allergy, Severe, HIVES, 08/04/17) Per pt. Social History ETOH- denies Smoking- cigarettes- 1/2 pack to a pack a day Illicit drug use - (+) cocaine, opiates not prescribed (Brielle Angela) Review of Systems Gastrointestinal: COMPLAINS OF: Abdominal pain, Diarrhea, Nausea, Vomiting, DENIES: Black stools, Bloody stools, Constipation, Difficulty Swallowing, Odynophagia, Swelling of Abdomen, Heartburn, Hematemesis (Brielle Angela) GI Exam Vitals I&O Vital Signs Date Time Temp Pulse Resp B/P (MAP) Pulse Ox O2 Delivery O2 Flow Rate FiO2 08/06/17 11:58 98.2 64 18 101/58 (72) 95 08/06/17 08:37 98.1 63 18 119/69 (86) 96 08/06/17 07:55 55 08/06/17 06:31 98.0 67 18 118/59 (78) 97 08/06/17 06:01 21 08/06/17 04:05 52 08/06/17 00:00 63 08/05/17 21:03 98.4 60 16 131/67 (88) 98 08/05/17 20:50 61 08/05/17 16:30 97.4 61 18 106/63 (77) 98 I/O 08/05/17 08/05/17 08/05/17 08/06/17 08/06/17 08/06/17 07:00 15:00 23:00 07:00 15:00 23:00 Intake Total 500 ml Output Total 1200 ml Balance 500 ml -1200 ml Intake IV Total 500 ml Output Urine Total 1200 ml # Voids 1 # Bowel Movements [address] Angiography 08/05/17 0023 Signed Impressions: Service Date/Time: Saturday, August 05, 2017 01:16 - CONCLUSION: 1. No pneumothorax. 2. No pulmonary embolism. Ayad Noriega MD Chest X-Ray 08/04/17 5528 Signed Impressions: Service Date/Time: Friday, August 04, 2017 23:44 - CONCLUSION: Small questionable bilateral apical pneumothoraces versus artifact. A followup 2 view chest plain film study could be performed for further evaluation. Alternatively this could be evaluated with CT. Ayad Noriega MD Laboratory Test 08/06/17 01:47 Total Creatine Kinase 108 U/L Troponin I LESS THAN 0.02 NG/ML Physical Examination HEENT: Normocephalic; atraumatic CHEST: Even/unlabored CARDIAC: RRR ABDOMEN: Soft, nondistended, diffuse TTP, bowel sounds active EXTREMITIES: No clubbing, cyanosis, or edema. SKIN: Normal; no rash; no jaundice. SEWING INSPECTOR: No focal deficits; alert and oriented times three. (Brielle Angela [facility]) Assessment and Plan Plan Assessment: - Abdominal pain, mostly epigastric, for the past year, intermittent, described as sharp. Denies aggravating or alleviating factors. Associated nausea, vomiting. Has never had EGD or colonoscopy. History of cholecystectomy. - Unintentional weight loss- 40-50 pounds over the past 6 months. Associated decreased appetite. - Loose stools, pale colored, foul smelling - Polysubstance abuse- (+) cocaine, also report taking opiates that he got on the street, not prescribed by a doctor - History of hepatitis C, has never received treatment, states got it from his . Reports history of IV drug use. Also has tattoos - Chest pain- cardiac enzymes negative. CTA negative for PE. Pain ? secondary to cocaine use - Seizure disorder- seen by neurology Plan: - CT abdomen and pelvis to evaluate weight loss - EGD/colonoscopy tomorrow - Obtain consent - Clear liquid now - GoLytely prep - NPO after MN - Stool studies - Further recommendations based on results of above Pt has been seen and examined by myself and Dr. neal and this note is written on his behalf (Brielle Angela) Physician Comments Seen and examined with DEBT COLLECTION SPECIALIST, egd/colonoscopy tomorrow. Hepatitis C [place] as outpt. Thank you (Ronny Neal MD) Brielle Angela Aug 06, 2017 15:46 Ronny Neal MD Aug 06, 2017 16:44
[2017-08-06] MEDS ORDERED: DIATRIZOATE MEGLUM/DIATRIZOATE SOD 9 ML CUP PO ONE (16:45)
[2017-08-06] MEDS ORDERED: PEG (High)/E-LYTE SOLN 4000 ML BTL PO ONE (17:00)
[2017-08-06] MEDS: NICOTINE 7 MG/24 HR PATCH T-DERMAL SCH (19:33)
[2017-08-06] MEDS: LURASIDONE 40 MG TAB PO SCH (20:36)
[2017-08-06] MEDS ORDERED: IOHEXOL 350 MG/ML 10 ML VIAL (for RAD DIAG) IVCONTRAST ONE (21:26)
--- NOTE | 2017-08-06 21:36 | RADRPT ---
EXAM DATE/TIME: 08/06/2017 20:52 [facility] COMPARISON: CT ABDOMEN & PELVIS W CONTRAST, December 11, 2016, 12:32. INDICATIONS : Weight loss. IV CONTRAST: 75 cc Omnipaque 350 (iohexol) IV ORAL CONTRAST: Prescribed oral contrast ingested. RADIATION DOSE: 6.64 CTDIvol (mGy) MEDICAL HISTORY : Hypertension. Hepatitis C. SURGICAL HISTORY : Appendectomy. Cholecystectomy. ENCOUNTER: Initial ACUITY: 1 day PAIN SCALE: 5/10 LOCATION: Bilateral abdomen TECHNIQUE: Volumetric scanning of the abdomen and pelvis was performed. Using automated exposure control and ad justment of the mA and/or kV according to patient size, radiation dose was kept as low as reasonably achievable to obtain optimal diagnostic quality images. DICOM format image data is available electro nically for review and comparison. FINDINGS: LOWER LUNGS: The visualized lower lungs are clear. LIVER: Homogeneous density without lesion. Gallbladder is surgically absent. There is stable prominence of t he central intrahepatic and extra hepatic bile ducts consistent with reservoir effect. SPLEEN: Normal size without lesion. PANCREAS: Within normal limits. KIDNEYS: Normal in size and shape. Stable indeterminate density cyst in the inferior pole of the right kidney. There is no mass, stone or hydronephrosis. ADRENAL GLANDS: Within normal limits. VASCULAR: There is no aortic aneurysm. BOWEL/MESENTERY: Large amount of material in the stomach. No dilated loops of bowel. Moderate amount of stool througho ut the colon. No free fluid or genital fluid collection. No free air. ABDOMINAL WALL: Within normal limits. RETROPERITONEUM: There is no lymphadenopathy. BLADDER: No wall thickening or mass. REPRODUCTIVE: Within normal limits. INGUINAL: There is no lymphadenopathy or hernia. MUSCULOSKELETAL: Within normal limits for patient age. CONCLUSION: 1. No acute abnormality in the abdomen or pelvis. 2. Moderate stool throughout the colon may reflect constipation. 3. Large amount of material in the stomach. Correlation with recent p.o. intake is recommended. 4. Remainder of the exam is unchanged with stable ancillary findings, as above. Iggy Hoyos MD on August 06, 2017 at 21:30 Board Certified Radiologist. This report was verified electronically.
[2017-08-06] MEDS ORDERED: MAGNESIUM HYDROXIDE SUSP 30 ML CUP PO ONE (22:15)
[2017-08-07 01:22] VITALS: BP 109/58; PULSE 54; RESP 14; TEMP 98.2; O2SAT 98
[2017-08-07 01:31] VITALS: BP 116/70; PULSE 64; RESP 16; TEMP 98; O2SAT 98
[2017-08-07] MEDS: ALPRAZolam 1 MG TAB PO PRN ×3 (03:00→08:33)
[2017-08-07 03:29] VITALS: PULSE 53
[2017-08-07 05:15] VITALS: BP 112/59; PULSE 58; RESP 16; TEMP 97.4; O2SAT 96
--- NOTE | 2017-08-07 07:16 | MG ---
cc: JOSY PAIZ M.D. Lab No: 18-____ Date: 08/06/2017 Age: 47 Sex: M Race: __ INDICATIONS An EEG was obtained on this 47-year-old patient being evaluated for confusion and seizure. MEDICATIONS 1. Lamictal 2. Xanax 3. Keppra 4. Latuda DESCRIPTION The patient is described as awake and asleep. This EEG shows asleep features. There are some sleep spindles and K complexes. There is a suggestion of higher amplitude and possibly slower rhythms on the left, but there is a relatively mild symmetry. There are some sharp waves on the left more than right. When the patient awakens, there are alpha rhythms bilaterally. Eventually some sharp discharges are noted left frontal temporal region. Photic stimulation was unremarkable. Hyperventilation produced some mild slowing. INTERPRETATION This EEG shows probable mild left hemisphere slowing with some associated sharp discharges suggesting structural abnormality on the left with rare epileptiform features. No ictal pattern. MD REGINA Marrero/CURLY /6:40 AM /7:07 AM
[2017-08-07 07:26] LABS: AUTOMATED NEUTROPHIL # 4.9 TH/MM3 (1.8-7.7); BASOPHIL % 0.5 % (0.0-2.0); EOSINOPHIL # 0.2 TH/MM3 (0-0.4); EOSINOPHIL % 2.1 % (0.0-4.0); HEMATOCRIT 45.7 % (39.0-51.0); HEMOGLOBIN 15.3 GM/DL (13.0-17.0); LYMPH % 29.1 % (9.0-44.0); LYMPHOCYTE # 2.3 TH/MM3 (1.0-4.8); MEAN CELL VOLUME 91.7 FL (80.0-100.0); MEAN CORPUSCULAR HEMOGLOBIN 30.8 PG (27.0-34.0); MEAN CORPUSCULAR HGB CONC 33.6 % (32.0-36.0); MONO % 6.5 % (0.0-8.0); MONOCYTE # 0.5 TH/MM3 (0-0.9); NEUT % 61.8 % (16.0-70.0); PLATELET COUNT 166 TH/MM3 (150-450); RED BLOOD COUNT 4.98 MIL/MM3 (4.50-5.90); RED CELL DISTRIBUTION WIDTH 13.6 % (11.6-17.2); WHITE BLOOD COUNT 7.9 TH/MM3 (4.0-11.0)
[2017-08-07 07:41] LABS: BICARBONATE 28.1 MEQ/L (21.0-32.0); CALCIUM 8.4 MG/DL (8.5-10.1); CREATININE 0.68 MG/DL (0.60-1.30)
[2017-08-07] MEDS ORDERED: MORPHINE SULFATE 2 MG/ML INJ IV PUSH PRN (08:00)
--- NOTE | 2017-08-07 08:08 | HHI.PR ---
Subjective Remarks Follow up abdominal pain, nausea/vomiting. Patient was unable to drink all of the bowel prep. He wants to leave AMA. States that he feels "sick" today. Objective Vitals Vital Signs Date Time Temp Pulse Resp B/P (MAP) Pulse Ox O2 Delivery O2 Flow Rate FiO2 08/07/17 05:15 97.4 58 16 112/59 (76) 96 08/07/17 03:29 53 08/07/17 01:31 98.0 64 16 116/70 (85) 98 08/07/17 01:22 98.2 54 14 109/58 (75) 98 08/06/17 16:12 97.8 62 18 100/50 (67) 98 08/06/17 11:58 98.2 64 18 101/58 (72) 95 08/06/17 11:50 59 08/06/17 08:37 98.1 63 18 119/69 (86) 96 I/O 08/06/17 08/06/17 08/06/17 08/07/17 08/07/17 08/07/17 07:00 15:00 23:00 07:00 15:00 23:00 # Voids 1 3 Result Diagram: 08/07/17 0639 08/07/17 0639 Imaging Last Impressions Abdomen/Pelvis CT 08/06/17 0000 Signed Impressions: Service Date/Time: Sunday, August 06, 2017 20:52 - CONCLUSION: 1. No acute abnormality in the abdomen or pelvis. 2. Moderate stool throughout the colon may reflect constipation. 3. Large amount of material in the stomach. Correlation with recent p.o. intake is recommended. 4. Remainder of the exam is unchanged with stable ancillary findings, as above. Iggy Hoyos MD CT Angiography 08/05/17 0023 Signed Impressions: Service Date/Time: Saturday, August 05, 2017 01:16 - CONCLUSION: 1. No pneumothorax. 2. No pulmonary embolism. Ayad Noriega MD Chest X-Ray 08/04/17 2334 Signed Impressions: Service Date/Time: Friday, August 04, 2017 23:44 - CONCLUSION: Small questionable bilateral apical pneumothoraces versus artifact. A followup 2 view chest plain film study could be performed for further evaluation. Alternatively this could be evaluated with CT. Ayad Noriega MD Objective Remarks General: No acute distress. HEENT: Small abrasion on right forehead. Heart: Regular rate and rhythm. No murmur. Lungs: Clear to auscultation bilaterally. No wheezes, rales, or rhonchi. Breathing is nonlabored. Abdomen: Soft, tender to palpation in midepigastric region, nondistended. Extremities: No lower extremity edema. Psych: Alert and oriented. Procedures None Urinary Catheter: No Vascular Central Line Catheter: No A/P Assessment and Plan 1. Seizure disorder with breakthrough seizure: Appreciate neurology recommendations. Continue Keppra, Lamictal. Seizure precautions. Possibly secondary to benzodiazepine withdrawal. Check STAT head CT. 2. Polysubstance abuse: Urine drug screen positive for benzodiazepines, cocaine. Patient states that he no longer uses illicit drugs. Reports last use of IV heroin 15 years ago. He has been counselled. 3. Abdominal pain, nausea, vomiting: Patient also has weight loss of 40-50 pounds over the past 6 months. He reports significant midepigastric pain. He also reports that his stool is more pale in color and more foul-smelling recently. Lipase is normal. Consult gastroenterology for further evaluation. 4. Hypertension: Continue Norvasc. 5. History of hepatitis C 6. Depression/anxiety, bipolar disorder: Continue home medications. 7. Tobacco abuse: Nicotine patch as needed. 8. DVT prophylaxis: MUNA [place]. The patient states that he wants to sign out AGAINST MEDICAL ADVICE. I have discussed this with him and recommended that he remain here to have head CT and GI workup. He is agreeable to having the head CT done. He did not complete the bowel prep for EGD/colonoscopy. Case Lockhart MD Aug 07, 2017 08:08
[2017-08-07] MEDS: SODIUM CHLORIDE 0.9% FLUSH 10 ML FLUSH IV FLUSH SCH ×2 (08:30→08:34)
[2017-08-07] MEDS: levETIRAcetam 250 MG TAB PO SCH ×2 (08:31→08:33)
[2017-08-07] MEDS: lamoTRIgine 25 MG TAB PO SCH (08:32)
[2017-08-07] MEDS: NICOTINE 7 MG/24 HR PATCH T-DERMAL SCH (08:33)
[2017-08-07 08:49] VITALS: BP 114/67; PULSE 64; RESP 18; TEMP 97.6; O2SAT 99
[2017-08-07] MEDS ORDERED: REMOVE OLD PATCH T-DERMAL SCH (09:00)
--- NOTE | 2017-08-07 09:16 | RADRPT ---
EXAM DATE/TIME: 08/07/2017 08:57 [facility] COMPARISON: CT BRAIN W/O CONTRAST, January 04, 2017, 17:48. CT ABDOMEN & PELVIS W CONTRAST, August 06, 2017, 20:5 2. INDICATIONS : Seizure RADIATION DOSE: 37.63 CTDIvol (mGy) MEDICAL HISTORY : Seizures. Hypertension. Hepatitis C.Prior skull fracture SURGICAL HISTORY : None. ENCOUNTER: Initial ACUITY: 1 day PAIN SCALE: 3/10 LOCATION: Bilateral cranial TECHNIQUE: Multiple contiguous axial images were obtained of the head. Using automated exposure control and adj ustment of the mA and/or kV according to patient size, radiation dose was kept as low as reasonably a chievable to obtain optimal diagnostic quality images. DICOM format image data is available electro nically for review and comparison. FINDINGS: CEREBRUM: The ventricles are normal for age. No evidence of midline shift, mass lesion, hemorrhage or acute in farction. No extra-axial fluid collections are seen. POSTERIOR FOSSA: The cerebellum and brainstem are intact. The 4th ventricle is midline. The cerebellopontine angle i s unremarkable. EXTRACRANIAL: The visualized portion of the orbits is intact. SKULL: The calvaria is intact. No evidence of skull fracture. CONCLUSION: 1. No acute intracranial abnormality identified. Shai Diaz MD on August 07, 2017 at 9:13 Board Certified Radiologist. This report was verified electronically.
== END 2017-08-07 18:24 | disposition left against medical advice (07) ==
LOC: NEPC 23:23 → NEDA 08-05 01:57 → NEPGCP 08-05 03:43
PROVIDERS: ADMIT Family Medicine; ATTEND Family Medicine
DX: R07.89 Other chest pain (principal); R20.0 Anesthesia of skin; R10.13 Epigastric pain; R63.4 Abnormal weight loss; R11.2 Nausea with vomiting, unspecified; I10 Essential (primary) hypertension; J44.9 Chronic obstructive pulmonary disease, unspecified; E78.5 Hyperlipidemia, unspecified; F31.9 Bipolar disorder, unspecified; G40.909 Epilepsy, unspecified, not intractable, without status epilepticus; I25.2 Old myocardial infarction; B19.20 Unspecified viral hepatitis C without hepatic coma; F20.9 Schizophrenia, unspecified; F41.9 Anxiety disorder, unspecified; F14.10 Cocaine abuse, uncomplicated; F13.20 Sedative, hypnotic or anxiolytic dependence, uncomplicated; F17.210 Nicotine dependence, cigarettes, uncomplicated; Z79.899 Other long term (current) drug therapy; W01.0XXA Fall on same level from slipping, tripping and stumbling without subsequent striking against object, initial encounter
CPT/HCPCS: 70450; 71045; 71275; 74177; 80048; 80053; 80175; 80177; 80307; 82550; 82552; 83690; 83735; 83880; 84443; 84484; 85025; 85379; 85610; 85730; 93005; 95819; 96361; 96374; 96375; 96376; 99285; G0378; J1885; J2270; J2405; J7040; Q9963; Q9967

== ENCOUNTER 2017-08-23 15:28 | Emergency (ER) | payer MEDICAID ==
[~2017-08-23] VITALS: Ht 175.3 cm; Wt 68.0 kg
[2017-08-23] MEDS ORDERED: IOHEXOL 350 MG/ML 10 ML VIAL (for RAD DIAG) IVCONTRAST ONE (15:29)
[2017-08-23 15:33] VITALS: BP 149/74; PULSE 85; RESP 16; TEMP 98.5; O2SAT 97
[2017-08-23 15:45] VITALS: BP 159/93; PULSE 80; RESP 16; O2SAT 97
[2017-08-23] MEDS ORDERED: SODIUM CHLORIDE 0.9% FLUSH 10 ML FLUSH IVF PRN (15:45)
[2017-08-23] MEDS ORDERED: HYDR-3583 PO (15:54)
[2017-08-23] MEDS ORDERED: GABA600T PO (15:54)
--- NOTE | 2017-08-23 15:57 | PD ---
HPI Chief Complaint: Fall Time Seen by Provider: 15:44 Travel History International Travel<30 days: No Contact w/Intl Traveler<30days: No Traveled to known affect area: No History of Present Illness HPI 47-year-old male states he was about 4 steps up on a ladder when he had a seizure and fell and hit his head. He states he is having pain to his head and his abdomen. He denies any other concurrent complaints. He states that he has not been taking his Keppra for his seizure disorder. He states he feels worse when he moves around. He states his landlord saw him have the seizure and brought him here as he did not want to come in by ambulance. Quality of pain is sharp. Severity is moderate. He denies other modifying factors. History is limited as patient does not recall event. PFSH Past Medical History Asthma: No Blood Disorders: No Bipolar Disorder: Yes Anxiety: Yes Depression: Yes Heart Rhythm Problems: No Cancer: No Cardiac Catheterization: No Cardiovascular Problems: Yes (HTN, 1987) High Cholesterol: No Chemotherapy: No Congestive Heart Failure: No COPD: No Cerebrovascular Accident: No Diabetes: No Diminished Hearing: No Endocrine: No Gastrointestinal Disorders: Yes (COLITIS ) Genitourinary: No Headaches: Yes Hepatitis: Yes (HEP C) Heparin Induced Thrombocytopen: No Hypertension: Yes Immune Disorder: No Kidney Stones: Yes Musculoskeletal: No Neurologic: Yes Psychiatric: Yes Reproductive: No Respiratory: Yes (COPD, EMYPHYSEMA ) Integumentary: Yes (hx of herpies) Immunizations Current: Yes Migraines: No Myocardial Infarction: Yes (PT STATES WHEN HE WAS 18 BUT 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 AND SENT HOME) Radiation Therapy: No Schizophrenia: Yes Seizures: Yes Past Surgical History Abdominal Surgery: Yes (APPENDECTOMY) AICD: No Appendectomy: Yes Arteriovenous Shunt: No Cardiac Surgery: No Cholecystectomy: Yes Coronary Artery Bypass Graft: No Ear Surgery: No Endocrine Surgery: No Eye Surgery: No Genitourinary Surgery: No Gynecologic Surgery: No Insulin Pump: No Joint Replacement: No Neurologic Surgery: Yes (SKULL FRACTURE) Oral Surgery: No Pacemaker: No Thoracic Surgery: No Other Surgery: Yes (ACHILLES TENDON RECONSTRUCTION SX right foot) Social History Alcohol Use: Yes (Occasionally) Tobacco Use: Yes (1/2 PPD) Substance Use: Yes (COCAINE) Allergies-Medications (Allergen,Severity, Reaction): Coded Allergies: codeine (Verified Allergy, Severe, HIVES, 08/23/17) Per pt. Reported Meds & Prescriptions Reported Meds & Active Scripts Active Keppra (Levetiracetam) 500 Mg Tab 500 Mg PO BID Lamictal (Lamotrigine) 25 Mg Tab 25 Mg PO DAILY Amlodipine (Amlodipine Besylate) 10 Mg Tab 10 Mg PO HS Reported Hydrocodone-Acetaminophen 10-325 mg Tab 1 Tab PO Q6H PRN Gabapentin 600 Mg Tab 600 Mg PO BID Xanax (Alprazolam) 1 Mg Tab 1 Mg PO BID PRN Latuda (Lurasidone) 80 Mg Tab 60 Mg PO HS Review of Systems Except as stated in HPI: all other systems reviewed are Neg Physical Exam Narrative General: 47 y/o patient who appears uncomfortable Skin: Warm and dry Eyes: Pupils equal, eomi ENT: no septal hematoma NECK: C-collar in place Cardiovascular: Regular rate and rhythm Respiratory: Normal respiratory effort noted, clear to auscultation bilaterally Abdomen: soft, diffusely tender, nondistended Back: No step-offs, midline spine nontender with palpation Extremities: No pain over main joints with palpation Neuro: awake, alert, sensation and motor grossly intact Data Data Last Documented VS Vital Signs Date Time Temp Pulse Resp B/P (MAP) Pulse Ox O2 Delivery O2 Flow Rate FiO2 08/23/17 18:56 08/23/17 17:58 60 18 97 Room Air 08/23/17 15:33 98.5 Orders Orders Basic Metabolic Panel (Bmp) (08/23/17 15:44) Complete Blood Count With Diff (08/23/17 15:44) Prothrombin Time / Inr (Pt) (08/23/17 15:44) Act Partial Throm Time (Ptt) (08/23/17 15:44) Type And Screen (08/23/17 15:44) Chest, Single Ap (08/23/17 15:44) Ct Brain W/O Iv Contrast(Rout) (08/23/17 15:44) Ct Cerv Spine W/O Contrast (08/23/17 15:44) Ct Abd/Pel W Iv Contrast(Rout) (08/23/17 15:44) Apply Cervical Collar (08/23/17 15:44) Iv Access Insert/Monitor (08/23/17 15:44) Ecg Monitoring (08/23/17 15:44) Oximetry (08/23/17 15:44) Sodium Chloride 0.9% Flush (Ns Flush) (08/23/17 15:45) Lorazepam Inj (Ativan Inj) (08/23/17 16:00) Iohexol 350 Inj (Omnipaque 350 Inj) (08/23/17 15:29) Lorazepam (Ativan) (08/23/17 17:15) Levetiracetam (Keppra) (08/23/17 17:15) Acetaminophen (Tylenol) (08/23/17 17:30) Ed Discharge Order (08/23/17 18:25) Labs Laboratory Tests Test 08/23/17 15:53 White Blood Count 12.1 TH/MM3 Red Blood Count 4.71 MIL/MM3 Hemoglobin 14.7 GM/DL Hematocrit 42.8 % Mean Corpuscular Volume 90.8 FL Mean Corpuscular Hemoglobin 31.2 PG Mean Corpuscular Hemoglobin Concent 34.3 % Red Cell Distribution Width 13.9 % Platelet Count 242 TH/MM3 Mean Platelet Volume 7.6 FL Neutrophils (%) (Auto) 73.6 % Lymphocytes (%) (Auto) 19.4 % Monocytes (%) (Auto) 6.2 % Eosinophils (%) (Auto) 0.5 % Basophils (%) (Auto) 0.3 % Neutrophils # (Auto) 8.9 TH/MM3 Lymphocytes # (Auto) 2.4 TH/MM3 Monocytes # (Auto) 0.8 TH/MM3 Eosinophils # (Auto) 0.1 TH/MM3 Basophils # (Auto) 0.0 TH/MM3 CBC Comment DIFF FINAL Differential Comment Prothrombin Time 10.5 SEC Prothromb Time International Ratio 1.0 RATIO Activated Partial Thromboplast Time 25.2 SEC Blood Urea Nitrogen 17 MG/DL Creatinine 1.08 MG/DL Random Glucose 101 MG/DL Calcium Level 8.9 MG/DL Sodium Level 144 MEQ/L Potassium Level 3.9 MEQ/L Chloride Level 109 MEQ/L Carbon Dioxide Level 26.5 MEQ/L Anion Gap 9 MEQ/L Estimat Glomerular Filtration Rate 73 ML/MIN MDM Medical Decision Making Medical Screen Exam Complete: Yes Emergency Medical Condition: Yes Medical Record Reviewed: Yes (Past history confirmed) Interpretation(s) CBC & BMP Diagram 08/23/17 15:53 Calcium Level 8.[address] 08/23/17 1544 Signed Impressions: Service Date/Time: Wednesday, August 23, 2017 16:13 - CONCLUSION: 1. Mild chronic sinusitis in the posterior right ethmoid air cells. 2. Otherwise negative. No acute intracranial process/trauma Gabriel Blanton MD Chest X-Ray 08/23/17 1544 Signed Impressions: Service Date/Time: Wednesday, August 23, 2017 16:00 - CONCLUSION: 1. COPD changes. No acute abnormality. Shai Diaz MD Cervical Spine CT 08/23/17 1544 Signed Impressions: Service Date/Time: Wednesday, August 23, 2017 16:13 - CONCLUSION: Stable exam. No acute disease/fracture. Gabriel Blanton MD Abdomen/Pelvis CT 08/23/17 154 Signed Impressions: Service Date/Time: Wednesday, August 23, 2017 16:47 - CONCLUSION: 1. No acute abnormality. 2. Stable prominence of the intrahepatic connector hepatic biliary system no obstructing mass or stone observed. Jamel Lockhart Jr., MD Differential Diagnosis Seizure disorder with noncompliance, electrolyte abnormality, intra-abdominal injury, bleed, fracture Narrative Course Will check blood work, trauma imaging and dose with Ativan to decrease seizure threshold and monitor ed workup no acute, no seizure here, given ativan and keppra, will refill seizure medication, Patient denies any new complaints, all questions answered. Patient knows that follow up is incumbent on them and to return to the emergency room immediately if new or worsening symptoms develop. Patient given strict return precautions, vitals reviewed and are normal, agrees to further workup as an outpatient. Diagnosis Primary Impression: Fall Qualified Codes: W19.XXXA - Unspecified fall, initial encounter Additional Impression: Seizure Patient Instructions: General Instructions Additional Instructions: follow with primary and neurology this week, return as needed, no driving or standing on tall ladders until cleared by neurology, take your seizure medication Med/Other Pt SpecificInfo: Prescription(s) given Scripts Levetiracetam (Keppra) 500 Mg Tab 500 MG PO BID for Control Seizures, #60 TAB 0 Refills Prov: Kathy Iverson MD 08/23/17 Disposition: 01 DISCHARGE HOME Condition: Stable Kathy Iverson MD Aug 23, 2017 15:57
[2017-08-23] MEDS ORDERED: LORazepam 2 MG/ML VIAL IV PUSH ONE (16:00)
--- NOTE | 2017-08-23 16:11 | RADRPT ---
EXAM DATE/TIME: 08/23/2017 16:00 [facility] COMPARISON: CHEST SINGLE AP, August 04, 2017, 23:44. INDICATIONS : Pain in chest after fall from ladder post seizure. MEDICAL HISTORY : Chronic obstructive pulmonary disease. Seizures. Hypertension. Hepatitis C. SURGICAL HISTORY : None. ENCOUNTER: Initial ACUITY: 1 day PAIN SCORE: 10/10 LOCATION: Bilateral chest FINDINGS: There is COPD changes. The lungs are otherwise clear. The heart is normal in size. The osseous struct ures are grossly intact. CONCLUSION: 1. COPD changes. No acute abnormality. Shai Diaz MD on August 23, 2017 at 16:09 Board Certified Radiologist. This report was verified electronically.
[2017-08-23 16:28] LABS: AUTOMATED NEUTROPHIL # 8.9 TH/MM3 (1.8-7.7); BASOPHIL % 0.3 % (0.0-2.0); EOSINOPHIL # 0.1 TH/MM3 (0-0.4); EOSINOPHIL % 0.5 % (0.0-4.0); HEMATOCRIT 42.8 % (39.0-51.0); HEMOGLOBIN 14.7 GM/DL (13.0-17.0); LYMPH % 19.4 % (9.0-44.0); LYMPHOCYTE # 2.4 TH/MM3 (1.0-4.8); MEAN CELL VOLUME 90.8 FL (80.0-100.0); MEAN CORPUSCULAR HEMOGLOBIN 31.2 PG (27.0-34.0); MEAN CORPUSCULAR HGB CONC 34.3 % (32.0-36.0); MEAN PLATELET VOLUME 7.6 FL (7.0-11.0); MONO % 6.2 % (0.0-8.0); MONOCYTE # 0.8 TH/MM3 (0-0.9); NEUT % 73.6 % (16.0-70.0); PLATELET COUNT 242 TH/MM3 (150-450); RED BLOOD COUNT 4.71 MIL/MM3 (4.50-5.90); RED CELL DISTRIBUTION WIDTH 13.9 % (11.6-17.2); WHITE BLOOD COUNT 12.1 TH/MM3 (4.0-11.0)
[2017-08-23 16:33] LABS: PROTHROMBIN TIME - PATIENT 10.5 SEC (9.8-11.6)
[2017-08-23 16:44] LABS: BICARBONATE 26.5 MEQ/L (21.0-32.0); CALCIUM 8.9 MG/DL (8.5-10.1); CREATININE 1.08 MG/DL (0.60-1.30)
--- NOTE | 2017-08-23 16:56 | RADRPT ---
EXAM DATE/TIME: 08/23/2017 16:13 [facility] COMPARISON: CT BRAIN W/O CONTRAST, August 07, 2017, 8:57. INDICATIONS : Trauma, patient had seizure, fell off ladder. RADIATION DOSE: 46.59 CTDIvol (mGy) MEDICAL HISTORY : Seizures. Cardiovascular disease Hepatitis C.cardiac disease SURGICAL HISTORY : Appendectomy. Cholecystectomy. ENCOUNTER: Initial ACUITY: 1 day PAIN SCALE: 6/10 LOCATION: Left cranial TECHNIQUE: Multiple contiguous axial images were obtained of the head. Using automated exposure control and adj ustment of the mA and/or kV according to patient size, radiation dose was kept as low as reasonably a chievable to obtain optimal diagnostic quality images. DICOM format image data is available electro nically for review and comparison. FINDINGS: CEREBRUM: The ventricles are normal for age. No evidence of midline shift, mass lesion, hemorrhage or acute in farction. No extra-axial fluid collections are seen. POSTERIOR FOSSA: The cerebellum and brainstem are intact. The 4th ventricle is midline. The cerebellopontine angle i s unremarkable. Megacisterna magna, an anatomic variant. EXTRACRANIAL: The visualized portion of the orbits is intact. Mild chronic sinusitis in the posterior right ethmoid air cells. SKULL: The calvaria is intact. No evidence of skull fracture. CONCLUSION: 1. Mild chronic sinusitis in the posterior right ethmoid air cells. 2. Otherwise negative. No acute intracranial process/trauma Gabriel Blanton MD on August 23, 2017 at 16:52 Board Certified Radiologist. This report was verified electronically.
--- NOTE | 2017-08-23 16:58 | RADRPT ---
EXAM DATE/TIME: 08/23/2017 16:13 [facility] COMPARISON: CT CERVICAL SPINE W/O CONTRAST, January 04, 2017, 17:48. INDICATIONS : Trauma, patient had seizure, fell off ladder. RADIATION DOSE: 14.69 CTDIvol (mGy) MEDICAL HISTORY : Seizures. Cardiovascular disease Hepatitis C.HTN SURGICAL HISTORY : Appendectomy. Cholecystectomy. ENCOUNTER: Initial ACUITY: 1 day PAIN SCALE: 6/10 LOCATION: neck TECHNIQUE: Volumetric scanning of the cervical spine was performed. Multiplanar reconstructions in the sagittal, coronal and oblique axial planes were performed. Using automated exposure control and adjustment o f the mA and/or kV according to patient size, radiation dose was kept as low as reasonably achievable to obtain optimal diagnostic quality images. DICOM format image data is available electronically f or review and comparison. FINDINGS: VERTEBRAE: Normal vertebral body height. ALIGNMENT: No evidence of subluxation. C2-C3: The bony spinal canal is normal in size. No evidence of disc bulge or herniation. The neural forami na are bilaterally patent. C3-C4: The bony spinal canal is normal in size. No evidence of disc bulge or herniation. The neural forami na are bilaterally patent. C4-C5: The bony spinal canal is normal in size. No evidence of disc bulge or herniation. The neural forami na are bilaterally patent. C5-C6: The bony spinal canal is normal in size. No evidence of disc bulge or herniation. The neural forami na are bilaterally patent. C6-C7: The bony spinal canal is normal in size. No evidence of disc bulge or herniation. The neural forami na are bilaterally patent. C7-T1: The bony spinal canal is normal in size. No evidence of disc bulge or herniation. The neural forami na are bilaterally patent. CONCLUSION: Stable exam. No acute disease/fracture. Gabriel Blanton MD on August 23, 2017 at 16:54 Board Certified Radiologist. This report was verified electronically.
--- NOTE | 2017-08-23 17:06 | RADRPT ---
EXAM DATE/TIME: 08/23/2017 16:47 [facility] COMPARISON: CT ABDOMEN & PELVIS W CONTRAST, August 06, 2017, 20:52. INDICATIONS : Trauma, patient had seizure, fell off ladder. IV CONTRAST: 97 cc Omnipaque 350 (iohexol) IV ORAL CONTRAST: No oral contrast ingested. RADIATION DOSE: 5.98 CTDIvol (mGy) MEDICAL HISTORY : Seizures. Cardiovascular disease Hepatitis C.HTN SURGICAL HISTORY : Appendectomy. Cholecystectomy. ENCOUNTER: Initial ACUITY: 1 day PAIN SCALE: 5/10 LOCATION: abdomen TECHNIQUE: Volumetric scanning of the abdomen and pelvis was performed. Using automated exposure control and ad justment of the mA and/or kV according to patient size, radiation dose was kept as low as reasonably achievable to obtain optimal diagnostic quality images. DICOM format image data is available electro nically for review and comparison. FINDINGS: LOWER LUNGS: The visualized lower lungs are clear. LIVER: Homogeneous density without lesion. Mild prominence to the intrahepatic and extra hepatic biliary sys tem is unchanged from the prior study. No obstructing mass or stone seen.. SPLEEN: Normal size without lesion. PANCREAS: Within normal limits. KIDNEYS: Normal in size and shape. There is no mass, stone or hydronephrosis. ADRENAL GLANDS: Within normal limits. VASCULAR: There is no aortic aneurysm. BOWEL/MESENTERY: The stomach, small bowel, and colon demonstrate no acute abnormality. There is no free intraperitone al air or fluid. ABDOMINAL WALL: Within normal limits. RETROPERITONEUM: There is no lymphadenopathy. BLADDER: No wall thickening or mass. REPRODUCTIVE: Within normal limits. INGUINAL: There is no lymphadenopathy or hernia. MUSCULOSKELETAL: Within normal limits for patient age. CONCLUSION: 1. No acute abnormality. 2. Stable prominence of the intrahepatic connector hepatic biliary system no obstructing mass or ston e observed. Jamel Lockhart Jr., MD on August 23, 2017 at 17:01 Board Certified Radiologist. This report was verified electronically.
[2017-08-23] MEDS ORDERED: levETIRAcetam 500 MG TAB PO ONE (17:15)
[2017-08-23] MEDS ORDERED: LORazepam 1 MG TAB PO ONE (17:15)
[2017-08-23] MEDS ORDERED: ACETAMINOPHEN 325 MG TAB PO ONE (17:30)
[2017-08-23] MEDS ORDERED: LEVE500 PO (17:46)
[2017-08-23 17:58] VITALS: BP 119/57; PULSE 60; RESP 18; O2SAT 97
== END 2017-08-23 18:57 | disposition home or self-care (01) ==
LOC: NEPC 15:28
DX: G40.909 Epilepsy, unspecified, not intractable, without status epilepticus (principal); I10 Essential (primary) hypertension; B19.20 Unspecified viral hepatitis C without hepatic coma; F17.200 Nicotine dependence, unspecified, uncomplicated
CPT/HCPCS: 70450; 71045; 72125; 74177; 80048; 85025; 85610; 85730; 86850; 86900; 86901; 99285; Q9967

== ENCOUNTER 2017-08-27 19:38 | Emergency (ER) | payer MEDICAID ==
[~2017-08-27] VITALS: Ht 175.3 cm; Wt 70.7 kg
[~2017-08-27 19:38] MED LIST changes: +GABA600T PO; +HYDR-3583 PO
[2017-08-27 19:43] VITALS: BP 125/70; PULSE 75; RESP 18; TEMP 98.5; O2SAT 98
[2017-08-27] MEDS ORDERED: BACT800T5 PO (21:29)
[2017-08-27] MEDS ORDERED: CEPH-460 PO (21:29)
[2017-08-27] MEDS ORDERED: SULFAMETHOXAZOLE-TRIMETHOPRIM DS 800-160 MG TAB PO ONE ×2 (21:30→23:00)
[2017-08-27] MEDS ORDERED: LIDOCAINE HCL 1% 20 ML VIAL INFIL ONE ×2 (21:30→23:00)
[2017-08-27] MEDS ORDERED: CEPHALEXIN MONOHYDRATE 500 MG CAP PO ONE (21:30)
[2017-08-27] MEDS ORDERED: DICL75TA PO (21:57)
[2017-08-27] MEDS ORDERED: HYDR-3516 PO ×2 (21:57→21:58)
[2017-08-27] MEDS ORDERED: ACETAMINOPHEN/HYDROcodone 325 MG/5 MG TAB PO ONE ×2 (22:00→23:00)
--- NOTE | 2017-08-27 22:04 | PD ---
HPI Chief Complaint: Bite or Sting Time Seen by Provider: 20:57 Travel History International Travel<30 days: No Contact w/Intl Traveler<30days: No Traveled to known affect area: No History of Present Illness HPI 47-year-old male that presents to the ED for evaluation of abscess to his left foot. Per patient has had it for about 3 weeks now. He denies any injuries to it. He apparently was brought here by ambulance for evaluation of this. The examination is hard to any history as patient is found to be sleeping and answers just yes or no questions. He denies any history of this in the past. Allergy to codeine. Denies any history of IV drug or MRSA. No numbness, tilling, weakness. Pain per patient his significant. Per patient the pain is 10 out of 10. Denies taking anything for this. Other medical issues. Per patient is up-to-date with vaccinations. PFSH Past Medical History Asthma: No Blood Disorders: No Bipolar Disorder: Yes Anxiety: Yes Depression: Yes Heart Rhythm Problems: No Cancer: No Cardiac Catheterization: No Cardiovascular Problems: Yes High Cholesterol: No Chemotherapy: No Congestive Heart Failure: No COPD: No Cerebrovascular Accident: No Diabetes: No Diminished Hearing: No Endocrine: No Gastrointestinal Disorders: Yes (COLITIS ) Genitourinary: Yes (HERPES) Headaches: Yes Hepatitis: Yes (HEP C) Heparin Induced Thrombocytopen: No Hypertension: Yes Immune Disorder: No Kidney Stones: Yes Musculoskeletal: No Neurologic: Yes Psychiatric: Yes Reproductive: No Respiratory: Yes (COPD, EMYPHYSEMA ) Integumentary: Yes Immunizations Current: Yes Migraines: No Myocardial Infarction: Yes (PT STATES WHEN HE WAS 18 BUT 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 TO [facility] AND SENT HOME) Radiation Therapy: No Schizophrenia: Yes Seizures: Yes ?: Not Past Surgical History Abdominal Surgery: Yes AICD: No Appendectomy: Yes Arteriovenous Shunt: No Cardiac Surgery: No Cholecystectomy: Yes Coronary Artery Bypass Graft: No Ear Surgery: No Endocrine Surgery: No Eye Surgery: No Genitourinary Surgery: No Gynecologic Surgery: No Insulin Pump: No Joint Replacement: No Neurologic Surgery: Yes (SKULL FRACTURE) Oral Surgery: No Pacemaker: No Thoracic Surgery: No Other Surgery: Yes (ACHILLES TENDON RECONSTRUCTION SX right foot) Family History Family Myocardial Infarction: Yes (FATHER, BROTHER) Social History Alcohol Use: Yes (Occasionally) Tobacco Use: Yes (1/2 PPD) Substance Use: Yes (COCAINE last use 2 weeks ago ) Allergies-Medications (Allergen,Severity, Reaction): Coded Allergies: codeine (Verified Allergy, Severe, HIVES, 08/23/17) Per pt. Reported Meds & Prescriptions Reported Meds & Active Scripts Active Hydrocodone-Acetamin 5-325 mg (Hydrocodone/Acetaminophen) 5 Mg-325 Mg Tablet 1 Tab PO Q6HR PRN Diclofenac Sodium DR (Diclofenac Sodium) 75 Mg Tabdr 75 Mg PO BID PRN Keflex (Cephalexin) 500 Mg Cap 500 Mg PO Q6H 10 Days Bactrim DS (Sulfamethoxazole-Trimethoprim) 800-160 Mg Tab 1 Tab PO BID 10 Days Keppra (Levetiracetam) 500 Mg Tab 500 Mg PO BID Lamictal (Lamotrigine) 25 Mg Tab 25 Mg PO DAILY Amlodipine (Amlodipine Besylate) 10 Mg Tab 10 Mg PO HS Reported Hydrocodone-Acetaminophen 10-325 mg Tab 1 Tab PO Q6H PRN Gabapentin 600 Mg Tab 600 Mg PO BID Xanax (Alprazolam) 1 Mg Tab 1 Mg PO BID PRN Latuda (Lurasidone) 80 Mg Tab 60 Mg PO HS Review of Systems Except as stated in HPI: all other systems reviewed are Neg Physical Exam Narrative GENERAL: SKIN: Warm and dry. HEAD: Atraumatic. Normocephalic. EYES: Pupils equal and round. No scleral icterus. No injection or drainage. ENT: No nasal bleeding or discharge. Mucous membranes pink and moist. NECK: Trachea midline. No JVD. CARDIOVASCULAR: Regular rate and rhythm. RESPIRATORY: No accessory muscle use. Clear to auscultation. Breath sounds equal bilaterally. GASTROINTESTINAL: Abdomen soft, non-tender, nondistended. Hepatic and splenic margins not palpable. MUSCULOSKELETAL: Extremities without clubbing, cyanosis, or edema. No obvious deformities. Patient has full range of motion of the upper and lower extremity is bilaterally. Patient has what appears to be a area of erythema as well as purulence on the dorsal aspect of the left foot. Very tender to touch. Purulence noted. Warm to the touch as well. 2+ pulses bilaterally. Sensation intact. No streaking. NEUROLOGICAL: Awake and alert. No obvious cranial nerve deficits. Motor grossly within normal limits. Five out of 5 muscle strength in the arms and legs. Normal speech. PSYCHIATRIC: Appropriate mood and affect; insight and judgment normal. Data Data Last Documented VS Vital Signs Date Time Temp Pulse Resp B/P (MAP) Pulse Ox O2 Delivery O2 Flow Rate FiO2 08/27/17 22:03 08/27/17 19:43 98.5 75 18 98 Orders Orders Lidocaine 1% Inj (Xylocaine 1% Inj) (08/27/17 21:30) Sulfamet-Trimeth Ds 800-160 Mg (Bactrim (08/27/17 21:30) Cephalexin (Keflex) (08/27/17 21:30) Ed Discharge Order (08/27/17 21:53) Crutches (08/27/17 21:55) Acetamin-Hydrocod 325-5 Mg ([place] 5-325 (08/27/17 22:00) Foot, Limited (2vws) (08/27/17 ) Lorazepam Inj (Ativan Inj) (08/27/17 22:15) Morphine Inj (Morphine Inj) (08/27/17 22:45) Ondansetron Odt (Zofran Odt) (08/27/17 22:45) Morphine Inj (Morphine Inj) (08/27/17 22:45) Ondansetron Odt (Zofran Odt) (08/27/17 22:45) MDM Medical Decision Making Medical Screen Exam Complete: Yes Emergency Medical Condition: Yes Medical Record Reviewed: Yes Differential Diagnosis Cellulitis versus abscess versus staph infection Narrative Course 47-year-old male that presents to the ED for evaluation of infection to his left foot. Patient was properly examined and was found to have signs and symptoms consistent appears to be abscess. After explained procedure to the patient and she agreed to it abscess was incised and drained yesterday in procedure note. Culture was taken. Packing was placed. Patient was given first dose of antibiotic and pain medication. Patient will be given prescriptions for antibiotics and pain medication. Told to get packing removed in 2 days. Follow with PCP. See ED worsening symptoms. Of note after procedure patient has been very aggressive towards staff and nursing staff. He continues to ask for pain medication. He will be given one dose of morphine and told he will have to fill up his prescriptions. Procedures Procedure Narrative After the risks and benefits were discussed the following procedure was performed: INCISION AND DRAINAGE OF ABSCESS: The area was prepped and was sterilely draped. A subcutaneous wheal of 1 % Xylocaine with a total number 5 mL was used to anesthetize the area. The area was properly anesthetized. A number 11 scalpel was used to make a 1 -cm incision across the area of the abscess. Cultures were obtained. The abscess was drained an irrigated with normal saline. Quarter inch iodoform packing was placed in the wound. Sterile dressing applied. Patient advised to have packing removed in two days. Diagnosis Primary Impression: Abscess Patient Instructions: General Instructions, Narcotic given in the ED Additional Instructions: Take medications as prescribed. Follow-up with PCP. See ED for any worsening symptoms. Do not drink or drive while taking pain medication. Apply ice or heat as needed for pain. Get dressing changes daily. Med/Other Pt SpecificInfo: Prescription(s) given, Wound Care Scripts Hydrocodone/Acetaminophen (Hydrocodone-Acetamin 5-325 mg) 5 Mg-325 Mg Tablet 1 TAB PO Q6HR Y for PAIN SCALE 1 TO 10, #10 Prov: Alyson Love MD 08/27/[address] (Diclofenac Sodium DR) 75 Mg Tabdr 75 MG PO BID Y for PAIN SCALE 1 TO 10, #20 TAB 0 Refills Prov: Nick Foreman MD 08/27/17 Cephalexin (Keflex) 500 Mg Cap 500 MG PO Q6H for Infection for 10 Days, #40 CAP 0 Refills Prov: Nick Foreman MD 08/27/17 Sulfamethoxazole-Trimethoprim (Bactrim DS) 800-160 Mg Tab 1 TAB PO BID for Infection for 10 Days, #20 TAB 0 Refills Prov: Nick Foreman MD 08/27/17 Disposition: 01 DISCHARGE HOME Condition: Stable Salvador Luciano Aug 27, 2017 22:04
[2017-08-27] MEDS ORDERED: LORazepam 2 MG/ML VIAL IM ONE ×2 (22:15→23:00)
--- NOTE | 2017-08-27 22:42 | RADRPT ---
EXAM DATE/TIME: 08/27/2017 22:19 [facility] COMPARISON: No previous studies available for comparison. INDICATIONS : Left foot pain. Patient states he was bit by a spider. MEDICAL HISTORY : None. SURGICAL HISTORY : None. ENCOUNTER: Initial ACUITY: 2 days PAIN SCORE: 10/10 LOCATION: Left foot. FINDINGS: No fracture or subluxation of the left foot. Soft tissues appear focally swollen and indurated over t he distal metatarsals. CONCLUSION: Dorsal, distal soft tissue swelling, nonspecific. No radiopaque foreign body or acute bony abnormalit y. Clarence Hwang MD on August 27, 2017 at 22:40 Board Certified Radiologist. This report was verified electronically.
[2017-08-27] MEDS ORDERED: ONDANSETRON ODT 4 MG TAB PO ONE ×4 (22:45→23:00)
[2017-08-27] MEDS ORDERED: MORPHINE SULFATE 2 MG/ML INJ IM ONE ×4 (22:45→23:00)
== END 2017-08-28 | disposition home or self-care (01) ==
LOC: PHEFT 19:38
DX: L02.612 Cutaneous abscess of left foot (principal); F41.8 Other specified anxiety disorders; B19.20 Unspecified viral hepatitis C without hepatic coma; B00.9 Herpesviral infection, unspecified; I10 Essential (primary) hypertension; F20.9 Schizophrenia, unspecified; R56.9 Unspecified convulsions; F17.210 Nicotine dependence, cigarettes, uncomplicated; F14.90 Cocaine use, unspecified, uncomplicated; Z88.5 Allergy status to narcotic agent; Z87.442 Personal history of urinary calculi
CPT/HCPCS: 10061; 73620; 87070; 87205; 96372; 99284; E0113; J2060; J2270